=== PATIENT | female | born 1950 | race Caucasian/White ===

== ENCOUNTER → 2019-03-28 | Outpatient (CLI) | payer MEDICARE, OTHER ==
[2019-03-28 11:46] LABS: Basophils % (A) 1 %; Eosinophils # (A) 0.1 k/uL (0-0.7); Eosinophils % (A) 1 %; HCT 35.5 % (34.0-46.0); HGB 12.1 gm/dL (11.4-16.0); Lymphocytes # (A) 1.1 k/uL (1.0-4.8); Lymphocytes % (A) 15 %; MCH 30.3 pg (25.0-35.0); MCHC 34.1 g/dL (31.0-37.0); MCV 88.6 fL (80.0-100.0); Monocytes # (A) 0.5 k/uL (0-1.0); Monocytes % (A) 7 %; Neutrophils # (A) 5.5 k/uL (1.3-7.7); Neutrophils % (A) 75 %; Platelet Count 397 k/uL (150-450); RDW 12.7 % (11.5-15.5); WBC 7.3 k/uL (3.8-10.6)
[2019-03-28 11:56] LABS: INR 0.8 (<1.2); Partial Thromboplastin Time 22.8 sec (22.0-30.0); Prothrombin Time 9.3 sec (9.0-12.0)
[2019-03-28 11:58] LABS: African American GFR (CKD) >90 (>60 ml/min/1.73 sqM); Anion Gap 11 mmol/L; Blood Urea Nitrogen 11 mg/dL (7-17); Carbon Dioxide 27 mmol/L (22-30); Chloride 104 mmol/L (98-107); Glucose 200 mg/dL (74-99); Non-African American GFR(CKD) >90 (>60 ml/min/1.73 sqM); Potassium 3.8 mmol/L (3.5-5.1); Sodium 142 mmol/L (137-145)
[2019-03-28 12:07] LABS: Appearance,Urine Clear (Clear); Bacteria,Urine Rare /hpf; Bilirubin,Urine Negative (Negative); Blood,Urine Trace (Negative); Color,Urine Colorless; Glucose,Urine (UA) Negative (Negative); Ketones,Urine Negative (Negative); Leukocyte Esterase,Urine Negative (Negative); Nitrite,Urine Negative (Negative); PH, Urine 6.5 (5.0-8.0); Protein,Urine Trace (Negative); RBC,Urine 1 /hpf (0-5); Specific Gravity,Urine 1.002 (1.001-1.035); Urobilinogen,Urine <2.0 mg/dL (<2.0); WBC,Urine <1 /hpf (0-5)
== END | disposition home or self-care (01) ==
LOC: LABPAT 10:24
PROVIDERS: ATTEND Thoracic Surgery (Cardiothoracic Vascular Surgery)
DX: Z01.818 Encounter for other preprocedural examination (principal); Z01.812 Encounter for preprocedural laboratory examination; C34.12 Malignant neoplasm of upper lobe, left bronchus or lung; E86.0 Dehydration; Z79.01 Long term (current) use of anticoagulants
CPT/HCPCS: 36415; 80051; 81001; 82565; 82947; 84520; 85025; 85610; 85730; 86850; 86900; 86901; 93005

== ENCOUNTER 2019-04-07 06:13 | Inpatient (IN) | payer MEDICARE, OTHER ==
[~2019-04-07 06:13] MED LIST: DEXAMETHASONE SOD PHOSPHATE 10 MG/ML 1 ML VIAL IV ONE; MIDAZOLAM 2 MG/2 ML VIAL IV PRN; ONDANSETRON 4 MG/2 ML VIAL IVP ONE
[2019-04-07] MEDS ORDERED: LIDOCAINE 1% 20 ML VIAL (10MG/ML) FOR IV START INTRADERMA ONE (06:59)
[2019-04-07] MEDS: LACTATED RINGERS 1,000 ML IV SCH ×2 (07:00→07:01)
[2019-04-07 07:04] LABS: Glucose,Whole Blood 153 mg/dL (75-99)
[2019-04-07] MEDS ORDERED: SUCCINYLCHOLINE CHLORIDE 100 MG/5 ML SYR IV ONE (08:09)
[2019-04-07] MEDS ORDERED: ROCURONIUM BROMIDE 10 MG/ML 10 ML VIAL IV ONE (08:09)
[2019-04-07] MEDS ORDERED: GLYCOPYRROLATE 0.2 MG/ML 2 ML VIAL ONE (08:09)
[2019-04-07] MEDS ORDERED: PROPOFOL 10 MG/ML 20 ML VIAL IV ONE (08:09)
[2019-04-07] MEDS ORDERED: NEOSTIGMINE 1 MG/ML 10 ML VIAL ONE (08:09)
[2019-04-07] MEDS ORDERED: HYDROmorphone (PF) 1 MG/ML ONE (08:09)
[2019-04-07] MEDS ORDERED: MIDAZOLAM 2 MG/2 ML VIAL ONE (08:09)
[2019-04-07] MEDS ORDERED: LIDOCAINE 1% INJ 10MG/ML (20 ML MDV) ONE (08:09)
[2019-04-07] MEDS ORDERED: LABETALOL 5 MG/ML VIAL MDV ONE (08:09)
[2019-04-07] MEDS ORDERED: ESMOLOL 100 MG/10 ML VIAL ONE (08:09)
[2019-04-07] MEDS ORDERED: METOPROLOL TARTRATE 5 MG/5 ML VIAL IVP ONE (08:09)
[2019-04-07] MEDS ORDERED: fentaNYL (PF) 50 MCG/ML 2 ML AMP ONE (08:09)
[2019-04-07] MEDS ORDERED: BUPIVACAINE (PF) 0.5% 30 ML VIAL SQ ONE ×3 (08:58→09:26)
[2019-04-07] MEDS ORDERED: LACTATED RINGERS 1,000 ML IV ONE (11:31)
--- NOTE | 2019-04-07 11:53 | P.OP ---
Date of Procedure: 04/07/19 Preoperative Diagnosis: Primary carcinoma left upper lobe lung Postoperative Diagnosis: Same Procedure(s) Performed: Robotic-assisted thoracoscopic left upper lobectomy with mediastinal lymph node dissection Anesthesia: ELIDA Surgeon: Ronny Elias Staff Submarine Warfare Officer #1: Julio Carranza Estimated Blood Loss (ml): 40 IV fluids (ml): 1,000 Urine output (ml): 250 Pathology: other (Left upper lobe, lymph node stations L5, L6, level VII, L8, L 10, L 11) Condition: stable Disposition: PACU Indications for Procedure: 68-year-old female with clinical stage I carcinoma left upper lobe lung proven on needle biopsy. Operative Findings: Small tumor and left upper lobe with overlying pleural retraction. Pulmonary parenchyma was very poorly compliant and we never achieved complete intact elective cysts during the entire case. There was extensive hilar and mediastinal anthracotic adenopathy. Description of Procedure: The patient was brought to the operating room, placed supine on the operating table, anesthetized and intubated with a double-lumen endotracheal tube. The tube was positioned with fiberoptic bronchoscopy and secured. No endobronchial lesions were noted. The patient was turned in the right lateral decubitus position and appropriately positioned for robotic lobectomy. The left chest was sterilely prepped and draped. 3 incisions were made in the eighth interspace starting with one in the anterior axillary line and one in the posterior axillary line and one anterior to the initial incision a fourth small incision was made in the fourth interspace posteriorly. Through each of these robotic ports were placed. A working port was placed at the level of the diaphragm between the 2 anteriormost port. Single lung ventilation was utilized prior to port placement and maintained throughout the operation. The patient tolerated this well. CO2 insufflation was used to try to deflate the lung. Lung insufflation was poor.'s fissures were incomplete. There were adhesions present in the pleural cavity and these were taken down with electrocautery. The inferior pulmonary ligament was mobilized and dissection carried posteriorly. Lymph nodes in stations L 10 level VII L8 and L6 were harvested. Dissection was carried up on the mainstem bronchus posteriorly as well as on the pulmonary artery and the pleural reflection was taken down as far superiorly as possible. Once we completed the posterior dissection we turned our attention to the anterior surface. Further adhesions were taken down. Dissection was carried up over the superior pulmonary vein and superior pulmonary vein was encircled. It was ligated and divided with a robotic stapler. Further dissection in the hilum removed some L 11 lymph nodes. We were now able to encircle the left upper lobe bronchus and ligated and divided with a robotic thick stapler. We were now able to encircle first the lingular artery and then the truncus anterior doses and each of these were individually ligated and stapled with robotic staplers. One final branch of the pulmonary artery was present and pleural reflection with dissection was completed and this branch was taken with a final firing of a robotic stapler. The fissures were then completed with robotic medium thick staplers. Specimen was placed in an Endo Catch bag. The robot was undocked and the working port incision was enlarged. The specimen was brought through the resulting incision through the in the Endo Catch bag and sent for permanent section. The chest was irrigated with warm water. There was no air leak from the staple lines or from the hilar region. There were some small tears in the lower lobe which were very superficial which should develop due to the persistent inflation of the lung. These were left alone. A 28-Spanish chest tube was placed through separate stab incision and positioned posterior apically. The lung was inflated under thoracoscopic visualization and noted to inflate well. Scope was removed. Chest tube was secured with an 0 Ethibond stitch. Surgical incisions were closed with layers of Vicryl suture. Rib blocks were performed posteriorly at the level of the incisions with half percent Marcaine. Patient was turned supine and extubated and transferred to recovery in stable condition.
[2019-04-07] MEDS: HYDROmorphone 0.5 MG/0.5 ML SYRINGE IVP PRN ×3 (12:11→12:53)
[2019-04-07] MEDS ORDERED: ONDANSETRON 4 MG/2 ML VIAL IVP ONE (12:15)
[2019-04-07] MEDS ORDERED: diphenhydrAMINE 50 MG/ML 1 ML VIAL IVP ONE (12:25)
[2019-04-07] MEDS ORDERED: ONDANSETRON 4 MG/2 ML VIAL IVP PRN (12:42)
[2019-04-07] MEDS ORDERED: IPRATROPIUM-ALBUTEROL 3 ML NEB IH PRN (12:42)
[2019-04-07] MEDS ORDERED: ACETAMINOPHEN TAB 500 MG TAB PO PRN (12:42)
[2019-04-07] MEDS ORDERED: traMADol 50 MG TAB PO PRN (12:42)
[2019-04-07] MEDS ORDERED: SODIUM CHLORIDE 0.9% 1,000 ML IV SCH (12:42)
[2019-04-07] MEDS: KETOROLAC 30 MG/ML 1 ML VIAL IVP SCH ×3 (12:55→23:24)
[2019-04-07 12:59] LABS: Glucose,Whole Blood 217 mg/dL (75-99)
[2019-04-07] MEDS ORDERED: INSULIN ASPART (NovoLOG) 100 UNIT/ML VIAL SQ ONE (13:03)
--- NOTE | 2019-04-07 13:19 | XR ---
EXAMINATION TYPE: XR chest 1V portable DATE OF EXAM: 04/07/2019 COMPARISON: 04/07/2019 HISTORY: Post lobectomy TECHNIQUE: Single frontal view of the chest is obtained. FINDINGS: There is a left-sided chest tube. No sizable pneumothorax. Coarsened interstitium noted. T here is volume loss on the left. Atherosclerotic change aorta. IMPRESSION: 1. Postsurgical change with no sizable pneumothorax. Volume loss on the left is compatible with the jess anna's reported history of lobectomy. 2. Coarsened interstitium can be seen with chronic interstitial lung disease, interstitial pneumoniti s or venous congestion correlate clinically.
[2019-04-07 14:13] LABS: ABG Base Excess 2.3 mmol/L; ABG HCO3 29 mmol/L (21-25); ABG Oxygen Saturation 94.9 % (94-97); ABG PCO2 63 mmHg (35-45); ABG PH 7.28 (7.35-7.45); ABG PO2 81 mmHg (83-108); ABG TCO2 31 mmol/L (19-24); Allen Test Performed? Yes
[2019-04-07 14:24] LABS: Glucose,Whole Blood 167 mg/dL (75-99)
[2019-04-07] MEDS: HEPARIN SODIUM,PORCINE 5,000 UNIT/ML 1 ML VIAL SQ SCH ×2 (16:48→23:23)
[2019-04-07] MEDS: metFORMIN 500 MG TAB PO SCH (16:57)
[2019-04-07 17:02] LABS: Glucose,Whole Blood 136 mg/dL (75-99)
[2019-04-07] MEDS: IPRATROPIUM-ALBUTEROL 3 ML NEB IH SCH (19:09)
[2019-04-07 20:17] LABS: Glucose,Whole Blood 242 mg/dL (75-99)
--- NOTE | 2019-04-07 20:47 | CONS ---
CONSULTATION Mony Khan is a 68-year-old female who presented to [facility] for elective surgery. She had a known history of a lung nodule in the left upper lobe that was positive on PET scan. Subsequently CT-guided needle biopsy confirmed non-small- cell cancer. She underwent left upper lobectomy with mediastinal lymph node dissection and is in the postoperative stage. She is awake and alert. She does not have much pain and complains of mild shortness of breath. PAST MEDICAL HISTORY: Her past medical history is positive for: 1. Diabetes mellitus, type 2. 2. Hypertension. 3. Hypercholesteremia. 4. COPD. PAST SURGICAL HISTORY: Her past surgical history is positive for tubal ligation. FAMILY HISTORY: Positive for coronary artery disease in her father, cancer in her mother. SOCIAL HISTORY: The patient smoked for over 50 years. She quit in December of 2018. She does not drink alcohol excessively. MEDICATIONS: Her medications prior to admission were: 1. Norvasc. 2. Glucophage. 3. Glucotrol. 4. Prilosec. 5. Lisinopril. 6. Lipitor. 7. Low-dose aspirin. REVIEW OF SYSTEMS: Noncontributory. PHYSICAL EXAMINATION: Respiratory rate of 16, pulse rate of 80. She is afebrile. Blood pressure is 152/72. Oxygen saturation on 2 L by nasal cannula is 93%. HEENT is unremarkable. Chest reveals decreased breath sounds on the left with chest tube in place with an air leak. Right side is relatively clear. Cardiovascular system is in S1, S2. Abdomen is soft. There is no pedal edema. IMPRESSION AT THIS TIME: 1. Status post left upper lobectomy with wgy-soize-[id number] cancer of the lung. 2. Mild chronic obstructive pulmonary disease. At this point in time from a pulmonary standpoint, recommend incentive spirometry. Continue chest tube per Thoracic Surgery. GI and DVT prophylaxis. Bronchodilators. Prognosis is fair. Will have Medical Oncology further evaluate the patient. Depending on how she does, we shall make further changes to her care. I would like to thank you for allowing me the privilege of participating in her care. MMODL / IJN: [id number] /
[2019-04-07] MEDS: ATORVASTATIN 20 MG TAB PO SCH (20:52)
[2019-04-07] MEDS: METOPROLOL TARTRATE 12.5 MG TAB PO SCH (20:52)
[2019-04-07] MEDS: INSULIN ASPART (NovoLOG) 100 UNIT/ML VIAL SQ SCH ×2 (21:56→22:14)
[2019-04-07 22:01] LABS: Glucose,Whole Blood 263 mg/dL (75-99)
[2019-04-08 05:44] LABS: Glucose,Whole Blood 191 mg/dL (75-99)
[2019-04-08] MEDS: KETOROLAC 30 MG/ML 1 ML VIAL IVP SCH ×4 (06:29→23:42)
[2019-04-08] MEDS: PANTOPRAZOLE 40 MG TABLET PO SCH (06:30)
[2019-04-08] MEDS: INSULIN ASPART (NovoLOG) 100 UNIT/ML VIAL SQ SCH ×4 (06:30→21:42)
[2019-04-08 06:50] LABS: Basophils % (A) 0 %; Eosinophils % (A) 0 %; HCT 34.5 % (34.0-46.0); HGB 11.3 gm/dL (11.4-16.0); Lymphocytes # (A) 0.8 k/uL (1.0-4.8); Lymphocytes % (A) 8 %; MCH 29.6 pg (25.0-35.0); MCHC 32.7 g/dL (31.0-37.0); MCV 90.4 fL (80.0-100.0); Mean Platelet Volume 7.1; Monocytes # (A) 0.9 k/uL (0-1.0); Monocytes % (A) 8 %; Neutrophils # (A) 8.8 k/uL (1.3-7.7); Neutrophils % (A) 82 %; Platelet Count 402 k/uL (150-450); RBC 3.81 m/uL (3.80-5.40); RDW 12.6 % (11.5-15.5); WBC 10.8 k/uL (3.8-10.6)
--- NOTE | 2019-04-08 06:57 | PN ---
PROGRESS NOTE She was seen on 04/08/2019. She has been hemodynamically stable. She does not complain of shortness of breath. The pain is under control. PHYSICAL EXAMINATION: Her vitals are stable. She is afebrile. She has a left-sided chest tube with some decreased breath sounds, but there is no air leak this morning. Her right side is relatively clear. Cardiovascular system reveals and S1, S2. Abdomen is soft. There is no edema. MEDICATIONS: Medications were reviewed. IMPRESSION AT THIS TIME: 1. Left upper lobe non-small cell cancer of the lung, status post left upper lobectomy with lymph node dissection. 2. Left chest tube in the perioperative state. 3. Mild chronic obstructive pulmonary disease. Continue bronchodilators, incentive spirometry, GI and DVT prophylaxis. The patient's prognosis is fair. MMODL / IJN: [id number] /
[2019-04-08 06:58] LABS: African American GFR (CKD) >90 (>60 ml/min/1.73 sqM); Anion Gap 9 mmol/L; Blood Urea Nitrogen 9 mg/dL (7-17); Calcium 8.4 mg/dL (8.4-10.2); Carbon Dioxide 25 mmol/L (22-30); Chloride 101 mmol/L (98-107); Glucose 182 mg/dL (74-99); Non-African American GFR(CKD) >90 (>60 ml/min/1.73 sqM); Potassium 4.2 mmol/L (3.5-5.1); Sodium 135 mmol/L (137-145)
[2019-04-08] MEDS: IPRATROPIUM-ALBUTEROL 3 ML NEB IH SCH ×4 (07:26→19:46)
--- NOTE | 2019-04-08 07:45 | P.PN ---
Subjective Progress Note Date: 04/08/19 Principal diagnosis: Primary carcinoma left upper lobe of the lung. Previous medical history of COPD, recent smoking cessation, hypertension, hyperlipidemia, type 2 diabetes, hiatal hernia, family history of heart disease and cancer. POD #1 robotic assisted thoracoscopic left upper lobectomy with mediastinal lymph node dissection. The patient is currently sitting up in bed on the cardiac stepdown unit in no acute distress eating breakfast. Denies pain or shortness of breath at this time. Left pleural chest tube remains to continuous wall suction with small intermittent air leak. No new concerns. Objective - Vital Signs Vital signs: Vital Signs Temp 98 F 04/07/19 20:00 Pulse 95 04/08/19 07:26 Resp 18 04/08/19 04:00 BP 154/70 04/08/19 04:00 Pulse Ox 98 04/08/19 04:00 Intake & Output 04/07/19 04/08/19 04/08/19 18:59 06:59 18:59 Intake Total 2270 Output Total 440 1120 Balance 1830 -1120 Weight 50.3 kg Intake: IV 2150 Oral 120 Output: Chest Tube Drainage 220 Chest Tube Left 220 Urine 400 900 Estimated Blood Loss 40 Other: Voiding Method Indwelling Catheter Indwelling Catheter - Constitutional General appearance: Present: cooperative, no acute distress - Respiratory Details: Lungs sounds diminished bilaterally. Respirations even, nonlabored. Currently on 2 L nasal cannula with oxygen saturation 93%. Only able to achieve 500 mL on her incentive spirometry. Weak cough. Left pleural chest tube to continuous wall suction, 180 mL serosanguineous drainage overnight, 450 mL since surgery, small intermittent air leak present. - Cardiovascular Details: S1, S2 present. Regular rate and rhythm, sinus rhythm on telemetry. Palpable peripheral pulses bilaterally. No edema present. No calf pain or tenderness noted. SCDs present. - Gastrointestinal Gastrointestinal Comment(s): abdomen soft, nontender, nondistended. Active bowel sounds 4 quadrants. Tolerating diet. Positive flatus. - Genitourinary Genitourinary Comment(s): Lugo present draining clear, yellow urine. Output 150-550 mL every 4 hours - Integumentary Integumentary Comment(s): Skin is warm and dry with evidence of good perfusion. Left lateral chest tube site covered with dry intact dressing. - Neurologic Neurologic: Present: CNII-XII intact - Musculoskeletal Musculoskeletal: Present: strength equal bilaterally - Psychiatric Psychiatric: Present: A&O x's 3, appropriate affect, intact judgment & insight - Allied health notes Allied health notes reviewed: nursing - Labs CBC & Chem 7: 04/08/19 05:57 04/08/19 05:57 Labs: Abnormal Lab Results - Last 24 Hours (Table) 04/07/19 04/07/19 04/07/19 Range/Units 12:57 14:10 14:23 WBC (3.8-10.6) k/uL Hgb (11.4-16.0) gm/dL Neutrophils # (1.3-7.7) k/uL Lymphocytes # (1.0-4.8) k/uL ABG pH 7.28 L (7.35-7.45) ABG pCO2 63 H (35-45) mmHg ABG pO2 81 L (83-108) mmHg ABG HCO3 29 H (21-25) mmol/L ABG Total CO2 31 H (19-24) mmol/L Sodium (137-145) mmol/L Creatinine (0.52-1.04) mg/dL Glucose (74-99) mg/dL POC Glucose (mg/dL) 217 H 167 H (75-99) mg/dL 04/07/19 04/07/19 04/07/19 Range/Units 16:55 20:15 22:00 WBC (3.8-10.6) k/uL Hgb (11.4-16.0) gm/dL Neutrophils # (1.3-7.7) k/uL Lymphocytes # (1.0-4.8) k/uL ABG pH (7.35-7.45) ABG pCO2 (35-45) mmHg ABG pO2 (83-108) mmHg ABG HCO3 (21-25) mmol/L ABG Total CO2 (19-24) mmol/L Sodium (137-145) mmol/L Creatinine (0.52-1.04) mg/dL Glucose (74-99) mg/dL POC Glucose (mg/dL) 136 H 242 H 263 H (75-99) mg/dL 04/08/19 04/08/19 04/08/19 Range/Units 05:43 05:57 05:57 WBC 10.8 H (3.8-10.6) k/uL Hgb 11.3 L (11.4-16.0) gm/dL Neutrophils # 8.8 H (1.3-7.7) k/uL Lymphocytes # 0.8 L (1.0-4.8) k/uL ABG pH (7.35-7.45) ABG pCO2 (35-45) mmHg ABG pO2 (83-108) mmHg ABG HCO3 (21-25) mmol/L ABG Total CO2 (19-24) mmol/L Sodium 135 L (137-145) mmol/L Creatinine 0.51 L (0.52-1.04) mg/dL Glucose 182 H (74-99) mg/dL POC Glucose (mg/dL) 191 H (75-99) mg/dL - Imaging and Cardiology Chest x-ray: image reviewed Assessment and Plan Assessment: 1. 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 COPD 3. Recent smoking cessation 4. Hypertension 5. Hyperlipidemia 6. Type 2 diabetes 7. Hiatal hernia 8. Family history of heart disease and cancer Plan: 1. Left pleural chest tube placed to water seal. Will monitor for resolution of air leak. Surgical pathology pending 2. Wean O2 as tolerated. Encourage incentive spirometry use 10 times every hour while awake. Bronchodilators per pulmonology 3. Will monitor daily x-rays 4. Continue home medication regimen. Lopressor added secondary to tachycardia, hypertension during surgery 5. Oncology consulted per Dr. Whitfield. Appreciate recommendations. 6. GI/DVT prophylaxis 7. Pain control is current medication regimen 8. More recommendations to follow based on patient's progress Time with Patient: Greater than 30
[2019-04-08] MEDS: LISINOPRIL 20 MG TAB PO SCH (07:50)
[2019-04-08] MEDS: HEPARIN SODIUM,PORCINE 5,000 UNIT/ML 1 ML VIAL SQ SCH ×3 (07:50→23:42)
[2019-04-08] MEDS: ASPIRIN 81 MG PO SCH (07:51)
[2019-04-08] MEDS: amLODIPine 10 MG TAB PO SCH (07:51)
[2019-04-08] MEDS: METOPROLOL TARTRATE 12.5 MG TAB PO SCH ×2 (07:51→20:07)
--- NOTE | 2019-04-08 09:05 | XR ---
EXAMINATION TYPE: XR chest 1V DATE OF EXAM: 04/08/2019 COMPARISON: 04/07/2019 INDICATION: Post lobectomy TECHNIQUE: Single frontal view of the chest is obtained. FINDINGS: The heart size is upper limits of normal. The pulmonary vasculature is normal. There is diminished aeration along the left lung compatible with the patient's recent lobectomy. Some very minimal infiltrate may be along the left heart border likely on the basis of atelectasis. Left- sided chest tube is present. No pneumothorax appreciated. Right lung appears clear. IMPRESSION: 1. Suggestion of minimal atelectasis within the residual left lung. 2. Patient status post left lobectomy. 3. Left-sided chest tube present, no pneumothorax is evident.
[2019-04-08 11:45] LABS: Glucose,Whole Blood 174 mg/dL (75-99)
[2019-04-08 16:09] LABS: Glucose,Whole Blood 147 mg/dL (75-99)
[2019-04-08] MEDS: metFORMIN 500 MG TAB PO SCH (16:14)
[2019-04-08 17:21] LABS: Glucose,Whole Blood 197 mg/dL (75-99)
--- NOTE | 2019-04-08 18:00 | P.CONS ---
History of Present Illness - Reason for Consult Consult date: 04/08/19 Clinical Stage I NSCLC Requesting physician: Alek Whitfield - Chief Complaint Admit for elective surgery - History of Present Illness Mrs. Khan is a very pleasant 68-year-old female patient who is admitted for robotic left upper lobectomy for biopsy-proven non-small cell lung cancer. In September 2018 pt was having, what I suspect, routine f/u imaging (she states she had a a "haziness" in the RENY in Mar 2018 being followed). This was found to be a left upper lobe nodule now, PET scan that showed activity only in that nodule. She had biopsy on 03/02, path + NSCLC. She had curative surgery on 04/07/[address] Elias who performed robotic surgery on her with multiple lymph node stations sampled per guidelines. Those results are pending. Patient states that her symptoms included fatigue and weight loss. Postoperatively she is doing well, her pain is controlled, she is using incentive spirometry, she has no other complaints on a 14 point review of systems. Review of Systems 14 point review of systems is negative except as stated in HPI Past Medical History Past Medical History: No Reported History, Cancer, COPD, Diabetes Mellitus, GERD/Reflux, Hyperlipidemia, Hypertension, Skin Disorder Additional Past Medical History / Comment(s): lung cancer, hernia, psoriasis, History of Any Multi-Drug Resistant Organisms: None Reported Additional Past Surgical History / Comment(s): surgery for a tubal Past Anesthesia/Blood Transfusion Reactions: No Reported Reaction Smoking Status: Former smoker - Past Family History Mother Family Medical History: Cancer Sister(s) Family Medical History: Cancer Brother(s) Family Medical History: Cancer Medications and Allergies Home Medications Medication Instructions Recorded Confirmed Type Aspirin [Adult Low Dose Aspirin EC] 81 mg PO DAILY 01/24/19 04/04/19 History Atorvastatin [Lipitor] 20 mg PO HS 01/24/19 04/04/19 History Lisinopril 40 mg PO DAILY 04/04/19 04/04/19 History Omeprazole [PriLOSEC] 40 mg PO QAM 04/04/19 04/04/19 History glipiZIDE [Glucotrol XL] 2.5 mg PO DAILY 04/04/19 04/04/19 History metFORMIN HCL [Glucophage] 2,000 mg PO W/SUPPER 04/04/19 04/04/19 History amLODIPine [Norvasc] 10 mg PO DAILY 04/07/19 04/07/19 History Allergies Allergy/AdvReac Type Severity Reaction Status Date / Time No Known Allergies Allergy Verified 04/07/19 06:52 Physical Exam Vitals: Vital Signs Temp Pulse Pulse Resp BP Pulse Ox 04/08/19 16:15 92 16 04/08/19 16:04 97 16 04/08/19 16:00 98 F 101 H 16 134/63 92 L 04/08/19 11:24 92 04/08/19 11:12 90 04/08/19 11:02 98.1 F 93 18 187/85 92 L 04/08/19 10:54 18 04/08/19 08:00 18 04/08/19 07:49 98.2 F 95 18 157/70 95 04/08/19 07:37 95 04/08/19 07:26 95 04/08/19 04:00 94 18 154/70 98 04/07/19 23:51 95 20 149/70 93 L 04/07/19 20:00 98 F 99 18 176/83 96 04/07/19 19:27 96 04/07/19 19:10 94 Intake and Output 04/08/19 04/08/19 04/08/19 06:59 14:59 22:59 Output Total 1080 0 Balance -1080 0 Output: Chest Tube Drainage 180 0 Chest Tube Left 180 0 Urine 900 Other: Voiding Method Indwelling Catheter Indwelling Catheter Indwelling Catheter Weight 50.3 kg - Constitutional General appearance: average body habitus, cooperative, no acute distress - EENT Eyes: anicteric sclerae, EOMI, poor dentition ENT: hearing grossly normal, normal oropharynx - Neck Neck: no lymphadenopathy - Respiratory Respiratory: bilateral: diminished - Cardiovascular Rhythm: regular Heart sounds: normal: S1, S2 Abnormal Heart Sounds: no systolic murmur, no diastolic murmur, no rub, no S3 Gallop, no S4 Gallop, no click, no other leg Peripheral Edema: bilateral: None - Gastrointestinal General gastrointestinal: no absent bowel sounds, no decreased bowel sounds, no distended, no hepatomegaly, no hyperactive bowel sounds, normal bowel sounds, no organomegaly, no rigid, no scaphoid, soft, no splenomegaly, no tenderness, no umbilical hernia, no ventral hernia - Integumentary Integumentary: normal - Neurologic Neurologic: CNII-XII intact - Musculoskeletal Musculoskeletal: strength equal bilaterally - Psychiatric Psychiatric: A&O x's 3, appropriate affect, intact judgment & insight Results CBC & Chem 7: 04/08/19 05:57 04/08/19 05:57 Labs: Abnormal Lab Results - Last 24 Hours (Table) 04/07/19 04/07/19 04/08/19 Range/Units 20:15 22:00 05:43 WBC (3.8-10.6) k/uL Hgb (11.4-16.0) gm/dL Neutrophils # (1.3-7.7) k/uL Lymphocytes # (1.0-4.8) k/uL Sodium (137-145) mmol/L Creatinine (0.52-1.04) mg/dL Glucose (74-99) mg/dL POC Glucose (mg/dL) 242 H 263 H 191 H (75-99) mg/dL 04/08/19 04/08/19 04/08/19 Range/Units 05:57 05:57 11:38 WBC 10.8 H (3.8-10.6) k/uL Hgb 11.3 L (11.4-16.0) gm/dL Neutrophils # 8.8 H (1.3-7.7) k/uL Lymphocytes # 0.8 L (1.0-4.8) k/uL Sodium 135 L (137-145) mmol/L Creatinine 0.51 L (0.52-1.04) mg/dL Glucose 182 H (74-99) mg/dL POC Glucose (mg/dL) 174 H (75-99) mg/dL 04/08/19 04/08/19 Range/Units 16:08 16:54 WBC (3.8-10.6) k/uL Hgb (11.4-16.0) gm/dL Neutrophils # (1.3-7.7) k/uL Lymphocytes # (1.0-4.8) k/uL Sodium (137-145) mmol/L Creatinine (0.52-1.04) mg/dL Glucose (74-99) mg/dL POC Glucose (mg/dL) 147 H 197 H (75-99) mg/dL Chest x-ray: report reviewed CT scan - chest: report reviewed Assessment and Plan (1) Stage I adenocarcinoma of lung Narrative/Plan: Pending review of final pathology and all of the lymph node stations for final stage. Discussed with patient that following with a Medical Oncologist is recommended for monitoring, exams and imaging per guidelines. She and her family verbalized understanding recommendations. Will plan on seeing pt in the about 4-6 weeks Current Visit: Yes Status: Acute Priority: Medium Code(s): C34.90 - MALIGNANT NEOPLASM OF UNSP PART OF UNSP BRONCHUS OR LUNG SNOMED Code(s): 867029288
[2019-04-08] MEDS: ATORVASTATIN 20 MG TAB PO SCH (20:07)
[2019-04-08 20:52] LABS: Glucose,Whole Blood 143 mg/dL (75-99)
[2019-04-09 05:19] LABS: HCT 32.9 % (34.0-46.0); HGB 10.9 gm/dL (11.4-16.0); MCH 30.1 pg (25.0-35.0); MCHC 33.2 g/dL (31.0-37.0); MCV 90.6 fL (80.0-100.0); Platelet Count 423 k/uL (150-450); RBC 3.63 m/uL (3.80-5.40); RDW 12.6 % (11.5-15.5); WBC 9.5 k/uL (3.8-10.6)
[2019-04-09 05:39] LABS: African American GFR (CKD) >90 (>60 ml/min/1.73 sqM); Anion Gap 8 mmol/L; Blood Urea Nitrogen 11 mg/dL (7-17); Calcium 8.7 mg/dL (8.4-10.2); Carbon Dioxide 26 mmol/L (22-30); Chloride 105 mmol/L (98-107); Glucose 165 mg/dL (74-99); Non-African American GFR(CKD) >90 (>60 ml/min/1.73 sqM); Sodium 139 mmol/L (137-145)
[2019-04-09 06:34] LABS: Glucose,Whole Blood 179 mg/dL (75-99)
--- NOTE | 2019-04-09 06:39 | XR ---
EXAMINATION TYPE: XR chest 1V portable DATE OF EXAM: 04/09/2019 HISTORY: post lobectomy. REFERENCE: Previous study dated 04/08/2019. FINDINGS: There is a left pleural drain in place. There is continuing left-sided pneumothorax which i s approximately 30-40% by volume. There is some atelectasis at the right lung base. There is airspace disease at the left lung base. The heart is not enlarged. There is vascular congestion and subtle in terstitial change. IMPRESSION: 1. CONTINUING LEFT-SIDED PNEUMOTHORAX. 2. BIBASILAR AIRSPACE DISEASE. 3. FINDINGS MOST CONSISTENT WITH MILD HEART FAILURE.
[2019-04-09] MEDS: KETOROLAC 30 MG/ML 1 ML VIAL IVP SCH ×4 (06:46→23:19)
[2019-04-09] MEDS: PANTOPRAZOLE 40 MG TABLET PO SCH (06:47)
[2019-04-09] MEDS: INSULIN ASPART (NovoLOG) 100 UNIT/ML VIAL SQ SCH ×4 (06:47→21:55)
[2019-04-09] MEDS: METOPROLOL TARTRATE 25 MG TAB PO SCH ×2 (07:50→20:34)
[2019-04-09] MEDS: LISINOPRIL 20 MG TAB PO SCH (07:50)
[2019-04-09] MEDS: HEPARIN SODIUM,PORCINE 5,000 UNIT/ML 1 ML VIAL SQ SCH ×3 (07:50→23:20)
[2019-04-09] MEDS: ASPIRIN 81 MG PO SCH (07:50)
[2019-04-09] MEDS: amLODIPine 10 MG TAB PO SCH (07:51)
--- NOTE | 2019-04-09 08:19 | P.PN ---
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 Previous medical history of COPD, recent smoking cessation, hypertension, hyperlipidemia, type 2 diabetes, hiatal hernia, family history of heart disease and cancer. POD #2 robotic assisted thoracoscopic left upper lobectomy with mediastinal lymph node dissection. The patient is currently sitting up in bed on the cardiac stepdown unit in no acute distress eating breakfast. Denies pain or shortness of breath at this time. Left pleural chest tube placed to waterseal yesterday with small intermittent air leak present. No new concerns. Objective - Vital Signs Vital signs: Vital Signs Temp 98.4 F 04/09/19 07:48 Pulse 101 H 04/09/19 07:48 Resp 16 04/09/19 07:48 BP 152/76 04/09/19 07:48 Pulse Ox 96 04/09/19 07:48 Intake & Output 04/08/19 04/09/19 04/09/19 18:59 06:59 18:59 Output Total 0 150 Balance 0 -150 Weight 50.9 kg Output: Chest Tube Drainage 0 150 Chest Tube Left 0 150 Other: Voiding Method Indwelling Catheter Indwelling Catheter - Constitutional General appearance: Present: cooperative, no acute distress - Respiratory Details: Lungs sounds diminished bilaterally. Respirations even, nonlabored. Currently on 3 L nasal cannula with oxygen saturation 93%. Only able to achieve 500 mL on her incentive spirometry. Weak cough. Left pleural chest tube to waterseal, 40 mL serosanguineous drainage overnight, 200 mL since surgery, small intermittent air leak present, tidaling present. - Cardiovascular Details: S1, S2 present. Regular rate and rhythm, sinus rhythm on telemetry. Palpable peripheral pulses bilaterally. No edema present. No calf pain or tenderness noted. SCDs present. - Gastrointestinal Gastrointestinal Comment(s): abdomen soft, nontender, nondistended. Active bowel sounds 4 quadrants. Tolerating diet. Positive bowel movement this morning per patient - Genitourinary Genitourinary Comment(s): Lugo was discontinued yesterday. Patient states she has been up to the bathroom to void - Integumentary Integumentary Comment(s): Skin is warm and dry with evidence of good perfusion. Left lateral chest tube site covered with dry intact dressing. - Neurologic Neurologic: Present: CNII-XII intact - Musculoskeletal Musculoskeletal: Present: gait normal, strength equal bilaterally - Psychiatric Psychiatric: Present: A&O x's 3, appropriate affect, intact judgment & insight - Allied health notes Allied health notes reviewed: nursing - Labs CBC & Chem 7: 04/09/19 04:46 04/09/19 04:46 Labs: Abnormal Lab Results - Last 24 Hours (Table) 04/08/19 04/08/19 04/08/19 Range/Units 11:38 16:08 16:54 RBC (3.80-5.40) m/uL Hgb (11.4-16.0) gm/dL Hct (34.0-46.0) % Glucose (74-99) mg/dL POC Glucose (mg/dL) 174 H 147 H 197 H (75-99) mg/dL 04/08/19 04/09/19 04/09/19 Range/Units 20:50 04:46 04:46 RBC 3.63 L (3.80-5.40) m/uL Hgb 10.9 L (11.4-16.0) gm/dL Hct 32.9 L (34.0-46.0) % Glucose 165 H (74-99) mg/dL POC Glucose (mg/dL) 143 H (75-99) mg/dL 04/09/19 Range/Units 06:33 RBC (3.80-5.40) m/uL Hgb (11.4-16.0) gm/dL Hct (34.0-46.0) % Glucose (74-99) mg/dL POC Glucose (mg/dL) 179 H (75-99) mg/dL - Imaging and Cardiology Chest x-ray: report reviewed, image reviewed Assessment and Plan Assessment: 1. 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 COPD 3. Recent smoking cessation 4. Hypertension 5. Hyperlipidemia 6. Type 2 diabetes 7. Hiatal hernia 8. Family history of heart disease and cancer Plan: 1. Continue left pleural chest tube to water seal. Will monitor for resolution of air leak. Surgical pathology pending 2. Wean O2 as tolerated. Encourage incentive spirometry use 10 times every hour while awake. Bronchodilators per pulmonology 3. Will monitor daily x-rays 4. Continue home medication regimen. Lopressor increased 5. Oncology consulted per Dr. Whitfield. They will follow up in 4-6 weeks. 6. GI/DVT prophylaxis 7. Pain control per current medication regimen 8. More recommendations to follow based on patient's progress Time with Patient: Greater than 30
[2019-04-09] MEDS: IPRATROPIUM-ALBUTEROL 3 ML NEB IH SCH ×4 (08:47→20:11)
--- NOTE | 2019-04-09 10:38 | P.PN ---
Subjective Progress Note Date: 04/09/19 Principal diagnosis: 1. 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 COPD 3. Recent smoking cessation 4. Hypertension 5. Hyperlipidemia 6. Type 2 diabetes 7. Hiatal hernia 8. Family history of heart disease and cancer 04/09/2019, patient seen evaluated examined during the rounds left upper lobe cancer status post resection and left lobectomy with lymph node dissection postop day #2 doing well pain is better under control, minimal air leak is present, left-sided upper pneumothorax with bibasilar basal atelectasis patient is instructed to continue chest PT Objective - Vital Signs Vital signs: Vital Signs Temp 98.4 F 04/09/19 07:48 Pulse 94 04/09/19 08:47 Resp 16 04/09/19 07:48 BP 152/76 04/09/19 07:48 Pulse Ox 96 04/09/19 07:48 Intake & Output 04/08/19 04/09/19 04/09/19 18:59 06:59 18:59 Output Total 0 150 0 Balance 0 -150 0 Weight 50.9 kg Output: Chest Tube Drainage 0 150 0 Chest Tube Left 0 150 0 Other: Voiding Method Indwelling Catheter Indwelling Catheter Toilet - Exam General appearance: Present: cooperative, no acute distress - Respiratory Details: Lungs sounds diminished bilaterally. Respirations even, nonlabored. Currently on 3 L nasal cannula with oxygen saturation 93%. Only able to achieve 500 mL on her incentive spirometry. Weak cough. Left pleural chest tube to waterseal, 40 mL serosanguineous drainage overnight, 200 mL since surgery, small intermittent air leak present, tidaling present. - Cardiovascular Details: S1, S2 present. Regular rate and rhythm, sinus rhythm on telemetry. Palpable peripheral pulses bilaterally. No edema present. No calf pain or tenderness noted. SCDs present. - Gastrointestinal Gastrointestinal Comment(s): abdomen soft, nontender, nondistended. Active bowel sounds 4 quadrants. Tolerating diet. Positive bowel movement this morning per patient - Genitourinary Genitourinary Comment(s): Lugo was discontinued yesterday. Patient states she has been up to the bathroom to void - Integumentary Integumentary Comment(s): Skin is warm and dry with evidence of good perfusion. Left lateral chest tube site covered with dry intact dressing. - Neurologic Neurologic: Present: CNII-XII intact - Musculoskeletal Musculoskeletal: Present: gait normal, strength equal bilaterally - Psychiatric Psychiatric: Present: A&O x's 3, appropriate affect, intact judgment & insight - Labs CBC & Chem 7: 04/09/19 04:46 04/09/19 04:46 Labs: Abnormal Lab Results - Last 24 Hours (Table) 04/08/19 04/08/19 04/08/19 Range/Units 11:38 16:08 16:54 RBC (3.80-5.40) m/uL Hgb (11.4-16.0) gm/dL Hct (34.0-46.0) % Glucose (74-99) mg/dL POC Glucose (mg/dL) 174 H 147 H 197 H (75-99) mg/dL 04/08/19 04/09/19 04/09/19 Range/Units 20:50 04:46 04:46 RBC 3.63 L (3.80-5.40) m/uL Hgb 10.9 L (11.4-16.0) gm/dL Hct 32.9 L (34.0-46.0) % Glucose 165 H (74-99) mg/dL POC Glucose (mg/dL) 143 H (75-99) mg/dL 04/09/19 Range/Units 06:33 RBC (3.80-5.40) m/uL Hgb (11.4-16.0) gm/dL Hct (34.0-46.0) % Glucose (74-99) mg/dL POC Glucose (mg/dL) 179 H (75-99) mg/dL Assessment and Plan Assessment: status post left upper lobe resection and mediastinal lymph node dissection for left upper lobe cancer COPD severe category Hypertension hypertensive cardiovascular disease Dyslipidemia Type 2 diabetes mellitus Plan: continue pleural VAC in [place] and age Continue oxygen titrated as tolerated Deep breathing exercises incentive spirometry We'll follow clinical course closely DVT and peptic ulcer disease prophylaxis Continue pain management Time with Patient: Greater than 30
[2019-04-09 11:51] LABS: Glucose,Whole Blood 113 mg/dL (75-99)
[2019-04-09 17:10] LABS: Glucose,Whole Blood 163 mg/dL (75-99)
[2019-04-09] MEDS: metFORMIN 500 MG TAB PO SCH (17:13)
[2019-04-09] MEDS: ATORVASTATIN 20 MG TAB PO SCH (20:34)
[2019-04-09 21:06] LABS: Glucose,Whole Blood 139 mg/dL (75-99)
[2019-04-10 06:09] LABS: Glucose,Whole Blood 183 mg/dL (75-99)
[2019-04-10] MEDS: KETOROLAC 30 MG/ML 1 ML VIAL IVP SCH ×4 (06:38→23:19)
[2019-04-10] MEDS: PANTOPRAZOLE 40 MG TABLET PO SCH (06:39)
[2019-04-10] MEDS: INSULIN ASPART (NovoLOG) 100 UNIT/ML VIAL SQ SCH ×4 (06:39→20:37)
--- NOTE | 2019-04-10 06:42 | XR ---
EXAMINATION TYPE: XR chest 2V DATE OF EXAM: 04/10/2019 HISTORY: Post-lobectomy. REFERENCE: Previous study dated 04/09/2019. FINDINGS: A left pleural drain remains in place. There is a tiny left apical pneumothorax. This has d ecreased from previous. There is volume loss in the left lung with elevation left hemidiaphragm. Aera tion at the left lung base has improved. Some residual airspace disease persists. Minimal atelectasis present in the right lung base. The heart is not enlarged. IMPRESSION: 1. IMPROVING LEFT APICAL PNEUMOTHORAX. 2. IMPROVED AERATION, LEFT LUNG BASE.
[2019-04-10] MEDS: amLODIPine 10 MG TAB PO SCH (08:02)
[2019-04-10] MEDS: ASPIRIN 81 MG PO SCH (08:02)
[2019-04-10] MEDS: LISINOPRIL 20 MG TAB PO SCH (08:02)
[2019-04-10] MEDS: IPRATROPIUM-ALBUTEROL 3 ML NEB IH SCH ×4 (08:02→18:56)
[2019-04-10] MEDS: METOPROLOL TARTRATE 50 MG TAB PO SCH ×2 (08:02→20:39)
[2019-04-10] MEDS: HEPARIN SODIUM,PORCINE 5,000 UNIT/ML 1 ML VIAL SQ SCH ×3 (08:04→23:18)
--- NOTE | 2019-04-10 08:06 | P.PN ---
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 Previous medical history of COPD, recent smoking cessation, hypertension, hyperlipidemia, type 2 diabetes, hiatal hernia, family history of heart disease and cancer. POD #3 robotic assisted thoracoscopic left upper lobectomy with mediastinal lymph node dissection. The patient is currently sitting up in bed on the cardiac stepdown unit in no acute distress eating breakfast. Denies pain or shortness of breath at this time. Left pleural chest tube placed to waterseal with small intermittent air leak still present. No new concerns. Objective - Vital Signs Vital signs: Vital Signs Temp 98.2 F 04/10/19 04:00 Pulse 89 04/10/19 04:00 Resp 18 04/10/19 04:00 BP 168/72 04/10/19 04:00 Pulse Ox 93 L 04/10/19 04:00 Intake & Output 04/09/19 04/10/19 04/10/19 18:59 06:59 18:59 Intake Total 20 Output Total 50 40 Balance -30 -40 Weight 50.6 kg Intake: IV 20 0.9 20 Output: Chest Tube Drainage 50 40 Chest Tube Left 50 40 Other: Voiding Method Toilet Toilet # Voids 2 - Constitutional General appearance: Present: cooperative, no acute distress - Respiratory Details: Lungs sounds diminished bilaterally. Respirations even, nonlabored. Currently on 2 L nasal cannula with oxygen saturation 91%. Only able to achieve 500 mL on her incentive spirometry. Weak cough. Left pleural chest tube to waterseal, 200 mL output in 24 hours, small intermittent air leak remains present, tidaling present. - Cardiovascular Details: S1, S2 present. Regular rate and rhythm, sinus rhythm to sinus tach on telemetry. Palpable peripheral pulses bilaterally. No edema present. No calf pain or tenderness noted. SCDs present. - Gastrointestinal Gastrointestinal Comment(s): Abdomen soft, nontender, nondistended. Active bowel sounds 4 quadrants. Tolerating diet. Positive bowel movement per patient - Genitourinary Genitourinary Comment(s): Patient continues to ambulate to the bathroom to void - Integumentary Integumentary Comment(s): Skin is warm and dry with evidence of good perfusion. Left lateral chest tube site covered with dry intact dressing. - Neurologic Neurologic: Present: CNII-XII intact - Musculoskeletal Musculoskeletal: Present: gait normal, strength equal bilaterally - Psychiatric Psychiatric: Present: A&O x's 3, appropriate affect, intact judgment & insight - Allied health notes Allied health notes reviewed: nursing - Labs CBC & Chem 7: 04/09/19 04:46 04/09/19 04:46 Labs: Abnormal Lab Results - Last 24 Hours (Table) 04/09/19 04/09/19 04/09/19 Range/Units 11:34 17:09 21:04 POC Glucose (mg/dL) 113 H 163 H 139 H (75-99) mg/dL 04/10/19 Range/Units 06:07 POC Glucose (mg/dL) 183 H (75-99) mg/dL - Imaging and Cardiology Chest x-ray: report reviewed, image reviewed Assessment and Plan Assessment: 1. 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 COPD 3. Recent smoking cessation 4. Hypertension 5. Hyperlipidemia 6. Type 2 diabetes 7. Hiatal hernia 8. Family history of heart disease and cancer Plan: 1. Continue left pleural chest tube to water seal. Will monitor for resolution of air leak. Surgical pathology pending 2. Wean O2 as tolerated. Encourage incentive spirometry use 10 times every hour while awake. Bronchodilators per pulmonology 3. Will monitor daily x-rays 4. Continue home medication regimen. Lopressor increased to 50 mg BID 5. Oncology consulted per Dr. Whitfield. They will follow up in 4-6 weeks. 6. GI/DVT prophylaxis 7. Pain control per current medication regimen 8. More recommendations to follow based on patient's progress Time with Patient: Greater than 30
[2019-04-10 11:34] LABS: Glucose,Whole Blood 133 mg/dL (75-99)
--- NOTE | 2019-04-10 13:51 | P.PN ---
Subjective Progress Note Date: 04/10/19 Principal diagnosis: 1. 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 COPD 3. Recent smoking cessation 4. Hypertension 5. Hyperlipidemia 6. Type 2 diabetes 7. Hiatal hernia 8. Family history of heart disease and cancer 04/10/2019, seen eval reexamined during the rounds labs reviewed medications reviewed radiographic studies revealed that the, he still have intermittent air leak present through the pleural VAC, denies any chest pain shortness of breath stable, chest x-ray performed this morning revealed improving apical pneumothorax on the left side as well as improved aviation of left lung 04/09/2019, patient seen evaluated examined during the rounds left upper lobe cancer status post resection and left lobectomy with lymph node dissection posto p day #2 doing well pain is better under control, minimal air leak is present, left-sided upper pneumothorax with bibasilar basal atelectasis patient is instructed to continue chest PT Objective - Vital Signs Vital signs: Vital Signs Temp 97.5 F L 04/10/19 11:52 Pulse 106 H 04/10/19 11:52 Resp 18 04/10/19 11:52 BP 166/71 04/10/19 11:52 Pulse Ox 95 04/10/19 11:52 Intake & Output 04/09/19 04/10/19 04/10/19 18:59 06:59 18:59 Intake Total 20 480 Output Total 50 40 90 Balance -30 -40 390 Weight 50.6 kg Intake: IV 20 0.9 20 Oral 480 Output: Chest Tube Drainage 50 40 90 Chest Tube Left 50 40 90 Other: Voiding Method Toilet Toilet Toilet # Voids 2 1 # Bowel Movements 0 - Exam General appearance: Present: cooperative, no acute distress - Respiratory Details: Lungs sounds diminished bilaterally. Respirations even, nonlabored. Currently on 3 L nasal cannula with oxygen saturation 93%. Only able to achieve 500 mL on her incentive spirometry. Weak cough. Left pleural chest tube to waterseal, 40 mL serosanguineous drainage overnight, 200 mL since surgery, small intermittent air leak present, tidaling present. - Cardiovascular Details: S1, S2 present. Regular rate and rhythm, sinus rhythm on telemetry. Palpable peripheral pulses bilaterally. No edema present. No calf pain or tenderness noted. SCDs present. - Gastrointestinal Gastrointestinal Comment(s): abdomen soft, nontender, nondistended. Active bowel sounds 4 quadrants. To lerating diet. Positive bowel movement this morning per patient - Genitourinary Genitourinary Comment(s): Lugo was discontinued yesterday. Patient states she has been up to the bathroom to void - Integumentary Integumentary Comment(s): Skin is warm and dry with evidence of good perfusion. Left lateral chest tube site covered with dry intact dressing. - Neurologic Neurologic: Present: CNII-XII intact - Musculoskeletal Musculoskeletal: Present: gait normal, strength equal bilaterally - Psychiatric Psychiatric: Present: A&O x's 3, appropriate affect, intact judgment & insight - Labs CBC & Chem 7: 04/09/19 04:46 04/09/19 04:46 Labs: Abnormal Lab Results - Last 24 Hours (Table) 04/09/19 04/09/19 04/10/19 Range/Units 17:09 21:04 06:07 POC Glucose (mg/dL) 163 H 139 H 183 H (75-99) mg/dL 04/10/19 Range/Units 11:29 POC Glucose (mg/dL) 133 H (75-99) mg/dL Assessment and Plan Assessment: status post left upper lobe resection and mediastinal lymph node dissection for left upper lobe cancer COPD severe category Residue of the left pneumothorax Hypertension hypertensive cardiovascular disease Dyslipidemia Type 2 diabetes mellitus Plan: continue pleural VAC in [place] and age Continue oxygen titrated as tolerated Deep breathing exercises incentive spirometry We'll follow clinical course closely DVT and peptic ulcer disease prophylaxis Continue pain management Time with Patient: Greater than 30
[2019-04-10 16:46] LABS: Glucose,Whole Blood 139 mg/dL (75-99)
[2019-04-10] MEDS: metFORMIN 500 MG TAB PO SCH (16:50)
[2019-04-10 20:34] LABS: Glucose,Whole Blood 127 mg/dL (75-99)
[2019-04-10] MEDS: ATORVASTATIN 20 MG TAB PO SCH (20:39)
[2019-04-11 06:11] LABS: Glucose,Whole Blood 167 mg/dL (75-99)
[2019-04-11 06:14] LABS: HCT 31.8 % (34.0-46.0); HGB 10.5 gm/dL (11.4-16.0); MCH 29.9 pg (25.0-35.0); MCHC 32.9 g/dL (31.0-37.0); Mean Platelet Volume 7.1; Platelet Count 472 k/uL (150-450); RBC 3.49 m/uL (3.80-5.40); RDW 12.5 % (11.5-15.5); WBC 8.5 k/uL (3.8-10.6)
[2019-04-11 06:28] LABS: African American GFR (CKD) >90 (>60 ml/min/1.73 sqM); Anion Gap 8 mmol/L; Blood Urea Nitrogen 13 mg/dL (7-17); Calcium 8.9 mg/dL (8.4-10.2); Carbon Dioxide 29 mmol/L (22-30); Chloride 104 mmol/L (98-107); Glucose 150 mg/dL (74-99); Non-African American GFR(CKD) >90 (>60 ml/min/1.73 sqM); Sodium 141 mmol/L (137-145)
[2019-04-11] MEDS: PANTOPRAZOLE 40 MG TABLET PO SCH (06:38)
[2019-04-11] MEDS: INSULIN ASPART (NovoLOG) 100 UNIT/ML VIAL SQ SCH ×4 (06:38→21:43)
[2019-04-11] MEDS: KETOROLAC 30 MG/ML 1 ML VIAL IVP SCH ×4 (06:38→23:50)
--- NOTE | 2019-04-11 07:53 | P.PN ---
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 Previous medical history of COPD, recent smoking cessation, hypertension, hyperlipidemia, type 2 diabetes, hiatal hernia, family history of heart disease and cancer. POD #4 robotic assisted thoracoscopic left upper lobectomy with mediastinal lymph node dissection. Postoperative left sided pneumothorax, expected outcome of this type of surgery The patient is currently sitting up in bed on the cardiac stepdown unit in no acute distress about to eat breakfast. Continues to deny pain or shortness of breath, requiring no PRN pain medication. Left pleural chest tube continues to waterseal with small intermittent air leak still present, especially with forceful coughing. No new concerns. Objective - Vital Signs Vital signs: Vital Signs Temp 99.0 F 04/11/19 04:00 Pulse 93 04/11/19 04:00 Resp 16 04/11/19 04:00 BP 139/65 04/11/19 04:00 Pulse Ox 93 L 04/11/19 04:00 Intake & Output 04/10/19 04/11/19 04/11/19 18:59 06:59 18:59 Intake Total 730 10 Output Total 110 100 Balance 620 -90 Weight 49.8 kg Intake: IV 10 10 0.9 10 10 Oral 720 Output: Chest Tube Drainage 110 100 Chest Tube Left 110 100 Other: Voiding Method Toilet Toilet # Voids 2 1 # Bowel Movements 0 - Constitutional General appearance: Present: cooperative, no acute distress - Respiratory Details: Lungs sounds diminished bilaterally. Respirations even, nonlabored. Currently on 2 L nasal cannula with oxygen saturation 93%. Able to achieve 500-750 mL on her incentive spirometry. Strong cough. Left pleural chest tube to waterseal, 100 mL serous output overnight, 200 mL output in 24 hours, small intermittent air leak remains present especially with forceful coughing, tidaling present. - Cardiovascular Details: S1, S2 present. Regular rate and rhythm, sinus rhythm on telemetry. Palpable peripheral pulses bilaterally. No edema present. No calf pain or tenderness noted. SCDs present. - Gastrointestinal Gastrointestinal Comment(s): Abdomen soft, nontender, nondistended. Active bowel sounds 4 quadrants. Tolerating diet. Positive bowel movement per patient - Genitourinary Genitourinary Comment(s): Patient continues to ambulate to the bathroom to void - Integumentary Integumentary Comment(s): Skin is warm and dry with evidence of good perfusion. Left lateral chest tube site covered with dry intact dressing. - Neurologic Neurologic: Present: CNII-XII intact - Musculoskeletal Musculoskeletal: Present: gait normal, strength equal bilaterally - Psychiatric Psychiatric: Present: A&O x's 3, appropriate affect, intact judgment & insight - Allied health notes Allied health notes reviewed: nursing - Labs CBC & Chem 7: 04/11/19 05:38 04/11/19 05:38 Labs: Abnormal Lab Results - Last 24 Hours (Table) 04/10/19 04/10/19 04/10/19 Range/Units 11:29 16:44 20:33 RBC (3.80-5.40) m/uL Hgb (11.4-16.0) gm/dL Hct (34.0-46.0) % Plt Count (150-450) k/uL Glucose (74-99) mg/dL POC Glucose (mg/dL) 133 H 139 H 127 H (75-99) mg/dL 04/11/19 04/11/19 04/11/19 Range/Units 05:38 05:38 06:09 RBC 3.49 L (3.80-5.40) m/uL Hgb 10.5 L (11.4-16.0) gm/dL Hct 31.8 L (34.0-46.0) % Plt Count 472 H (150-450) k/uL Glucose 150 H (74-99) mg/dL POC Glucose (mg/dL) 167 H (75-99) mg/dL - Imaging and Cardiology Chest x-ray: image reviewed Assessment and Plan Assessment: 1. 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 COPD 3. Recent smoking cessation 4. Hypertension 5. Hyperlipidemia 6. Type 2 diabetes 7. Hiatal hernia 8. Family history of heart disease and cancer Plan: 1. Continue left pleural chest tube to water seal. Will monitor for resolution of air leak. Surgical pathology pending 2. Wean O2 as tolerated. Encourage incentive spirometry use 10 times every hour while awake. Bronchodilators per pulmonology 3. Increase activity, ambulate in hallway. Will order PT 4. Will monitor daily x-rays 5. Continue home medication regimen, lopressor 6. Oncology consulted per Dr. Whitfield. They will follow up in 4-6 weeks. 7. GI/DVT prophylaxis 8. Pain control per current medication regimen 9. More recommendations to follow based on patient's progress Time with Patient: Greater than 30
[2019-04-11] MEDS: IPRATROPIUM-ALBUTEROL 3 ML NEB IH SCH ×4 (08:37→19:07)
--- NOTE | 2019-04-11 09:02 | XR ---
EXAMINATION TYPE: XR chest 2V DATE OF EXAM: 04/11/2019 COMPARISON: 04/10/2019 HISTORY: Left upper lobectomy. Postsurgical evaluation. TECHNIQUE: Frontal and lateral views of the chest are obtained. FINDINGS: Left-sided thoracostomy tube is similar in position with trace left apical pneumothorax re maining and minimal subcutaneous emphysema. Left hemithorax volume loss is seen. Surgical sutures rani und the left hilum. Scattered areas of left-sided atelectasis. Right lung remains well aerated. Diffu se osseous demineralization is present. Mild degenerative change of the spine. IMPRESSION: Stable postsurgical changes of the left hemithorax with trace left pneumothorax remainin g.
[2019-04-11] MEDS: metFORMIN 500 MG TAB PO SCH (10:42)
[2019-04-11] MEDS: ASPIRIN 81 MG PO SCH (10:43)
[2019-04-11] MEDS: HEPARIN SODIUM,PORCINE 5,000 UNIT/ML 1 ML VIAL SQ SCH ×3 (10:43→23:50)
[2019-04-11] MEDS: amLODIPine 10 MG TAB PO SCH (10:43)
[2019-04-11] MEDS: LISINOPRIL 20 MG TAB PO SCH (10:43)
[2019-04-11] MEDS: METOPROLOL TARTRATE 50 MG TAB PO SCH ×2 (10:43→21:45)
[2019-04-11 11:30] LABS: Glucose,Whole Blood 141 mg/dL (75-99)
--- NOTE | 2019-04-11 15:46 | CDI ---
Documentation Clarification Form Date: 04/11/2019 3:18:46 PM From: Katie Byrnes RN, CCDS Admit Date: 04/07/2019 6:13:00 AM Patient Name: Mony Khan Visit Number: [id number] Discharge Date: ATTENTION: The Clinical Documentation Specialists (CDI) and [facility] Coding Staff appreciate your assistance in clarifying documentation. Please respond to the clarification below the line at the bottom and electronically sign. The CDI & [facility] Coding staff will review the response and follow-up if needed. Please note: Queries are made part of the Legal Health Record. If you have any questions, please contact the author of this message via ITS. Dr. Ronny Elias Small intermittent air leak is documented in the progress notes on 04/08/14 and in subsequent documentation. 04/09/19 Pulmonary (Dr. Albright) progress notes and subsequent documentation has minimal air leak is present, left-sided upper pneumothorax with bibasilar atelectasis. Patients Admitting Diagnosis: Primary carcinoma left upper lobe of lung Post-Operative Diagnosis: Same Procedure performed: Robotic- assisted thorascopic left upper lobectomy with mediastinal lymph node dissection History/Risk Factors: Non-small cell carcinoma left upper loge, COPD, Hypertension, Diabetes mellitus Clinical Indicators: 68-year-old female who was diagnosed with stage 1 non-small cell carcinoma in the left upper lobe present for a robotic-assisted thoracoscopic let upper lobectomy. Post procedure initial chest x-ray on 04/07/19 show no pneumothorax appreciated. On 04/09/19 follow-up chest x-ray is showing left-sided pneumothorax, and continue on 04/11/19 chest x-ray. Treatment: Chest tube to water seal O2 titration as tolerated Deep breathing exercise incentive spirometry use Bronchodilatory per pulmonology Pain control per current medication regimen In order to accurately reflect this patients severity of illness, please clarify if the post-operative diagnosis, left pneumothorax is: An expected post-procedural or post-surgical condition An unexpected post-procedural or post-surgical condition, related to the patients underlying medical comorbidities Other, please specify Unable to determine (Last Revision: July 2018) expected post op condition MTDD
[2019-04-11 16:34] LABS: Glucose,Whole Blood 119 mg/dL (75-99)
[2019-04-11 17:20] LABS: % Iron Saturation 15.65 (12.00-45.00)
[2019-04-11 17:28] LABS: Ferritin 92.7 ng/mL (10.0-291.0)
[2019-04-11 20:54] LABS: Glucose,Whole Blood 112 mg/dL (75-99)
[2019-04-11] MEDS: ATORVASTATIN 20 MG TAB PO SCH (21:45)
--- NOTE | 2019-04-11 21:47 | PN ---
PROGRESS NOTE DATE OF SERVICE: 04/11/2019. She has been hemodynamically stable. She continues to have an air leak, which she has been walking. On physical examination, vital signs stable. She is afebrile. Chest reveals chest tube in place with a small air leak. Cardiovascular system reveals an S1, S2. Abdomen is soft. There is no edema. Chest x-ray and labs are reviewed. IMPRESSION: At this time: 1. Small left-sided residual pneumothorax expected from her surgery. 2. Status post left upper lobectomy. Await final pathology. 3. Mild chronic obstructive pulmonary disease. Continue bronchodilators. Increase activity level. Her prognosis is fair. MMODL / IJN: [id number] /
[2019-04-12 06:18] LABS: Glucose,Whole Blood 156 mg/dL (75-99)
[2019-04-12] MEDS: PANTOPRAZOLE 40 MG TABLET PO SCH (06:22)
[2019-04-12] MEDS: KETOROLAC 30 MG/ML 1 ML VIAL IVP SCH ×2 (06:22→17:35)
[2019-04-12] MEDS: INSULIN ASPART (NovoLOG) 100 UNIT/ML VIAL SQ SCH ×4 (06:23→21:57)
[2019-04-12] MEDS ORDERED: SENNOSIDES-DOCUSATE SODIUM 1 EACH TAB PO PRN (07:10)
--- NOTE | 2019-04-12 07:19 | P.PN ---
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 Previous medical history of COPD, recent smoking cessation, hypertension, hyperlipidemia, type 2 diabetes, hiatal hernia, family history of heart disease and cancer. POD #5 robotic assisted thoracoscopic left upper lobectomy with mediastinal lymph node dissection. Postoperative left sided pneumothorax, expected outcome of this type of surgery The patient is currently sitting up in bed on the cardiac stepdown unit in no acute distress eating breakfast. Continues to deny pain or shortness of breath, requiring no PRN pain medication. Left pleural chest tube continues to waterseal with small intermittent air leak still present with forceful coughing. Ambulated in hallway yesterday with physical therapy, no difficulties. No new concerns. Objective - Vital Signs Vital signs: Vital Signs Temp 98.5 F 04/12/19 04:00 Pulse 81 04/12/19 04:00 Resp 18 04/12/19 04:00 BP 149/67 04/12/19 04:00 Pulse Ox 94 L 04/12/19 04:00 Intake & Output 04/11/19 04/12/19 04/12/19 18:59 06:59 18:59 Intake Total 680 Output Total 290 130 Balance 390 -130 Weight 49.8 kg Intake: Oral 680 Output: Chest Tube Drainage 90 130 Chest Tube Left 90 130 Urine 200 Other: Voiding Method Toilet # Voids 1 - Constitutional General appearance: Present: cooperative, no acute distress - Respiratory Details: Lungs sounds diminished bilaterally. Respirations even, nonlabored. Currently on 3 L nasal cannula with oxygen saturation 94%. Still only able to achieve 500-750 mL on her incentive spirometry. Strong cough. Left pleural chest tube to waterseal, 80 mL serous output overnight, 210 mL output in 24 hours, small intermittent air leak remains present with forceful coughing, tidaling present. - Cardiovascular Details: S1, S2 present. Regular rate and rhythm, sinus rhythm on telemetry. Palpable peripheral pulses bilaterally. No edema present. No calf pain or tenderness noted. SCDs present. - Gastrointestinal Gastrointestinal Comment(s): Abdomen soft, nontender, nondistended. Active bowel sounds 4 quadrants. Tolerating diet. Positive bowel movement per patient - Genitourinary Genitourinary Comment(s): Patient continues to ambulate to the bathroom to void - Integumentary Integumentary Comment(s): Skin is warm and dry with evidence of good perfusion. Left lateral chest tube site covered with dry intact dressing. - Neurologic Neurologic: Present: CNII-XII intact - Musculoskeletal Musculoskeletal: Present: gait normal, strength equal bilaterally - Psychiatric Psychiatric: Present: A&O x's 3, appropriate affect, intact judgment & insight - Allied health notes Allied health notes reviewed: nursing - Labs CBC & Chem 7: 04/11/19 05:38 04/11/19 05:38 Labs: Abnormal Lab Results - Last 24 Hours (Table) 04/11/19 04/11/19 04/11/19 Range/Units 05:38 11:29 16:32 POC Glucose (mg/dL) 141 H 119 H (75-99) mg/dL Iron 41 L (50-170) ug/dL Vitamin B12 151.0 L (200.0-944.0) pg/mL 04/11/19 04/12/19 Range/Units 20:52 06:17 POC Glucose (mg/dL) 112 H 156 H (75-99) mg/dL Iron (50-170) ug/dL Vitamin B12 (200.0-944.0) pg/mL - Imaging and Cardiology Chest x-ray: image reviewed Assessment and Plan Assessment: 1. 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 COPD 3. Recent smoking cessation 4. Hypertension 5. Hyperlipidemia 6. Type 2 diabetes 7. Hiatal hernia 8. Family history of heart disease and cancer 9. Postoperative pneumothorax Plan: 1. Continue left pleural chest tube to water seal. Will monitor for resolution of air leak. Surgical pathology pending 2. Wean O2 as tolerated. Encourage incentive spirometry use 10 times every hour while awake. Bronchodilators per pulmonology 3. Increase activity, ambulate in hallway, patient should be up in chair for all meals 4. Will monitor daily x-rays 5. Continue home medication regimen, lopressor 6. Oncology consulted per Dr. Whitfield. They will follow up in 4-6 weeks. 7. GI/DVT prophylaxis 8. Pain control per current medication regimen 9. More recommendations to follow based on patient's progress Time with Patient: Greater than 30
[2019-04-12] MEDS: IPRATROPIUM-ALBUTEROL 3 ML NEB IH SCH ×4 (07:35→19:17)
--- NOTE | 2019-04-12 08:40 | XR ---
EXAMINATION TYPE: XR chest 2V DATE OF EXAM: 04/12/2019 COMPARISON: 04/11/2019 HISTORY: Status post left upper lobectomy. Follow-up exam. TECHNIQUE: Frontal and lateral views of the chest are obtained. FINDINGS: Very trace left apical pneumothorax remains, improved from the prior. Left thoracostomy tu be is stable. Postsurgical left hemithorax volume loss and left hemidiaphragm elevation. Minimal jordyn hilar atelectasis bilaterally. Cardiomediastinal silhouette is stable. No acute osseous pathology. IMPRESSION: Improved trace left apical pneumothorax and postsurgical change.
[2019-04-12] MEDS ORDERED: SENNOSIDES-DOCUSATE SODIUM 1 EACH TAB PO SCH (09:00)
[2019-04-12] MEDS: ASPIRIN 81 MG PO SCH (09:14)
[2019-04-12] MEDS: amLODIPine 10 MG TAB PO SCH (09:14)
[2019-04-12] MEDS: METOPROLOL TARTRATE 50 MG TAB PO SCH ×2 (09:14→21:58)
[2019-04-12] MEDS: HEPARIN SODIUM,PORCINE 5,000 UNIT/ML 1 ML VIAL SQ SCH ×3 (09:14→23:35)
[2019-04-12] MEDS: LISINOPRIL 20 MG TAB PO SCH (09:14)
[2019-04-12 11:57] LABS: Glucose,Whole Blood 135 mg/dL (75-99)
--- NOTE | 2019-04-12 14:49 | PN ---
PROGRESS NOTE DATE OF SERVICE: 04/12/2019 Patient is a 68-year-old female who is seen sitting up in a chair, is awake, alert, comfortable at this time. Patient is afebrile, hemodynamically stable, in no acute distress. Patient is using IS and is able to reach 750. PHYSICAL EXAM: Vital signs, temp is 98.5, heart rate is 84, respiratory rate is 17, blood pressure is 149/67, O2 saturation 94% on 3 L O2 via nasal cannula. HEENT. Head is normocephalic, atraumatic. NECK: Supple. Trachea is midline. LUNGS: With scattered wheezes on the left. Clear, diminished on the right. HEART: S1, S2 heard. Not tachycardic. ABDOMEN: Soft, bowel sounds are heard. EXTREMITIES: With no edema. NEUROLOGIC: Patient is awake and alert. LABS: No new labs to review. IMAGING: Chest x-ray done this a.m. shows improved trace left apical pneumothorax and postsurgical change. IMPRESSION: 1. Small left-sided residual pneumothorax expected from her surgery. 2. Status post left upper lobectomy. Final pathology is pending. 3. Mild chronic obstructive pulmonary disease. PLAN: Continue current medications which have been reviewed. Continue incentive spirometry with pulmonary hygiene. Continue to increase activity as tolerated. Continue GI and DVT prophylaxis and will follow patient closely with you making further changes as necessary. MMODL / IJN: [id number] /
[2019-04-12 16:47] LABS: Glucose,Whole Blood 127 mg/dL (75-99)
[2019-04-12] MEDS: metFORMIN 500 MG TAB PO SCH (17:36)
[2019-04-12 20:35] LABS: Glucose,Whole Blood 188 mg/dL (75-99)
[2019-04-12] MEDS: ATORVASTATIN 20 MG TAB PO SCH (21:58)
[2019-04-13 06:03] LABS: Glucose,Whole Blood 158 mg/dL (75-99)
[2019-04-13] MEDS: PANTOPRAZOLE 40 MG TABLET PO SCH (06:41)
[2019-04-13] MEDS: INSULIN ASPART (NovoLOG) 100 UNIT/ML VIAL SQ SCH ×4 (06:41→20:25)
--- NOTE | 2019-04-13 06:48 | XR ---
EXAMINATION TYPE: XR chest 2V DATE OF EXAM: 04/13/2019 COMPARISON: Chest x-ray from yesterday and older studies. HISTORY: Postpartial pneumonectomy progress study. TECHNIQUE: Frontal and lateral views of the chest are obtained. FINDINGS: Persistent left apical chest tube without identifiable pneumothorax. Left-sided volume los s with mediastinal shift and elevated left hemidiaphragm redemonstrated. Background chronic emphysema tous change without suspicious new focal airspace opacity or significant pleural effusion is seen rosalie aterally. Cardiac silhouette is stable and within normal limits with atherosclerotic aorta. Osseous s tructures remain demineralized IMPRESSION: Overall stable findings, left-sided surgical change and volume loss and left-sided chest tube without residual pneumothorax.
[2019-04-13] MEDS: IPRATROPIUM-ALBUTEROL 3 ML NEB IH SCH ×4 (07:23→19:49)
[2019-04-13] MEDS: METOPROLOL TARTRATE 50 MG TAB PO SCH ×2 (09:41→20:25)
[2019-04-13] MEDS: amLODIPine 10 MG TAB PO SCH (09:41)
[2019-04-13] MEDS: ASPIRIN 81 MG PO SCH (09:41)
[2019-04-13] MEDS: HEPARIN SODIUM,PORCINE 5,000 UNIT/ML 1 ML VIAL SQ SCH ×3 (09:42→23:30)
[2019-04-13] MEDS: LISINOPRIL 20 MG TAB PO SCH (09:42)
[2019-04-13 11:29] LABS: Glucose,Whole Blood 153 mg/dL (75-99)
[2019-04-13 13:42] VITALS: BMI 19.3
[2019-04-13 16:51] LABS: Glucose,Whole Blood 133 mg/dL (75-99)
[2019-04-13] MEDS: metFORMIN 500 MG TAB PO SCH (17:59)
--- NOTE | 2019-04-13 18:17 | P.PN ---
Subjective Progress Note Date: 04/13/19 Principal diagnosis: NSCLC resected In follow-up today patient is doing well, she thinks she is having the chest tube removed today, she does have to brace when coughing and deep breathing, mild shortness of breath on exertion, she is comfortable at rest, no expectoration, hemoptysis, fevers, slight wheezing. She is tolerating a diet, she has had a bowel movement Objective - Vital Signs Vital signs: Vital Signs Temp 99.0 F 04/13/19 16:00 Pulse 96 04/13/19 16:00 Resp 18 04/13/19 16:00 BP 133/63 04/13/19 16:00 Pulse Ox 92 L 04/13/19 16:00 Intake & Output 04/12/19 04/13/19 04/13/19 18:59 06:59 18:59 Intake Total 920 594 Output Total 260 Balance 920 -260 594 Weight 49.5 kg 49.5 kg Intake: Oral 920 594 Output: Chest Tube Drainage 160 Chest Tube Left 160 Urine 100 Other: Voiding Method Toilet # Voids 1 2 - Constitutional Constitutional Comment(s): petite General appearance: Present: cooperative, no acute distress - EENT Eyes: Present: anicteric sclerae, EOMI, poor dentition ENT: Present: hearing grossly normal, normal oropharynx - Respiratory Respiratory: left: other (chest tube, absent breath sounds in the base), bilateral: diminished, wheezing (end expiratory) - Cardiovascular Rhythm: regular Heart sounds: normal: S1, S2 - Peripheral edema leg Peripheral Edema: bilateral: None - Gastrointestinal General gastrointestinal: Present: normal bowel sounds, soft - Integumentary Integumentary: Present: normal, normal turgor - Neurologic Neurologic: Present: CNII-XII intact - Musculoskeletal Musculoskeletal: Present: strength equal bilaterally - Psychiatric Psychiatric: Present: A&O x's 3, appropriate affect, intact judgment & insight - Labs CBC & Chem 7: 04/11/19 05:38 04/11/19 05:38 Labs: Abnormal Lab Results - Last 24 Hours (Table) 04/12/19 04/13/19 04/13/19 Range/Units 20:33 06:02 11:28 POC Glucose (mg/dL) 188 H 158 H 153 H (75-99) mg/dL 12/18/19 Range/Units 16:50 POC Glucose (mg/dL) 133 H (75-99) mg/dL Assessment and Plan (1) Primary lung adenocarcinoma Narrative/Plan: We reviewed path report, including a level [address] I explained to the pt that I would have to confirm if there would be any treatment plans with the Oncologist. I explained that no treatment would even be considered until she is completely healed from surgery. I also told her that if no treatment was offered that her f/u the 1st year would be rather intense-Q 3 months. She stated understanding and is willing to f/u with Medical Oncologist. I will get her an appt to her DC paperwork Path report notes tissue sent for PDL-1 and NGS-we will watch for these results I reviewed the NCCN guidelines and based on the pathology report, patient is a stage IIIA. Per NCCN guidelines N2 disease should be treated with chemo or possibly chemo/XRT. I will review the case in greater detail with the attending Oncologist and if pt is still in the hospital I will discuss with her his final recommendations. Current Visit: Yes Status: Acute Priority: High Code(s): C34.90 - MALIGNANT NEOPLASM OF UNSP PART OF UNSP BRONCHUS OR LUNG SNOMED Code(s): 947501041
[2019-04-13 20:06] LABS: Glucose,Whole Blood 107 mg/dL (75-99)
[2019-04-13] MEDS: ATORVASTATIN 20 MG TAB PO SCH (20:25)
--- NOTE | 2019-04-13 22:30 | PN ---
PROGRESS NOTE DATE OF SERVICE: 04/13/2019 This patient's left chest tube has been removed. She denies any shortness of breath. On physical examination, her vitals are stable. She is afebrile. Chest reveals diminished breath sounds on the left. Cardiovascular system is in S1, S2. Abdomen is soft. There is no pedal edema. IMPRESSION AT THIS TIME: 1. Lung cancer with moderate to poorly differentiated pulmonary adenocarcinoma with negative lymph nodes. 2. Mild chronic obstructive pulmonary disease. 3. Left-sided pneumothorax as part of the left upper lobectomy. At this point in time, would encourage incentive spirometry, increase her activity level. Check a chest x-ray in the morning. Depending on how she does, we shall make further changes to her care. MMODL / IJN: [id number] /
[2019-04-14 06:24] LABS: Glucose,Whole Blood 171 mg/dL (75-99)
[2019-04-14] MEDS ORDERED: FUROSEMIDE 10 MG/ML 2 ML VIAL IV ONE (06:32)
--- NOTE | 2019-04-14 06:50 | P.PN ---
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 Previous medical history of COPD, recent smoking cessation, hypertension, hyperlipidemia, type 2 diabetes, hiatal hernia, family history of heart disease and cancer. POD #5 robotic assisted thoracoscopic left upper lobectomy with mediastinal lymph node dissection. Postoperative left sided pneumothorax, expected outcome of this type of surgery The patient is currently sitting up in bed on the cardiac stepdown unit in no acute distress. She denies any complaints of pain or shortness of breath.Left pleural chest tube continues to waterseal with no air leak is present. Achieving 750 mL on her incentive spirometry. She's been ambulating in the cardiac care unit in all way with minimal assistance. Objective - Vital Signs Vital signs: Vital Signs Temp 98.9 F 04/13/19 08:00 Pulse 104 H 04/13/19 08:00 Resp 16 04/13/19 08:00 BP 129/61 04/13/19 08:00 Pulse Ox 85 L 04/13/19 08:00 Intake & Output 04/12/19 04/13/19 04/13/19 18:59 06:59 18:59 Intake Total 920 236 Output Total 260 Balance 920 -260 236 Weight 49.5 kg Intake: Oral 920 236 Output: Chest Tube Drainage 160 Chest Tube Left 160 Urine 100 Other: Voiding Method Toilet # Voids 1 - Constitutional General appearance: Present: cooperative, no acute distress, thin - Respiratory Details: lungs sounds essentially clear throughout, diminished bilateral bases. Respirations are symmetrical and nonlabored.oxygen saturation's are 93% on 2 L nasal cannula and 85% with room air. Left pleural chest tube remains in place to water seal. No air leak is present. Draining thin serosanguineous drainage. Achieving 750 mL on her incentive spirometry. - Cardiovascular Details: Regular rhythm with a tachycardic rate. S1 and S2 present, negative for S3, gallop or murmur. Remote telemetry showing sinus tachycardia heart rate 100. No edema present. Knee-high sequential compression devices in place to bilateral lower extremities. - Gastrointestinal Gastrointestinal Comment(s): Abdomen is soft, nontender and nondistended. Active bowel sounds present in all 4 abdominal quadrants. No guarding or rigidity. No organomegaly appreciated. - Genitourinary Genitourinary Comment(s): voiding clear yellow urine. - Integumentary Integumentary Comment(s): skin is warm and dry. No clubbing or cyanosis is present. Left chest incisions with dressing clean, dry and intact. No drainage or redness present. - Neurologic Neurologic: Present: CNII-XII intact - Musculoskeletal Musculoskeletal: Present: gait normal, strength equal bilaterally - Psychiatric Psychiatric: Present: A&O x's 3, appropriate affect, intact judgment & insight - Allied health notes Allied health notes reviewed: nursing - Labs CBC & Chem 7: 04/11/19 05:38 04/11/19 05:38 Labs: Abnormal Lab Results - Last 24 Hours (Table) 04/11/19 04/12/19 04/12/19 Range/Units 05:38 11:51 16:46 POC Glucose (mg/dL) 135 H 127 H (75-99) mg/dL RBC Folate 942 H (280 - 791) ng/mL 04/12/19 04/13/19 Range/Units 20:33 06:02 POC Glucose (mg/dL) 188 H 158 H (75-99) mg/dL RBC Folate (280 - 791) ng/mL - Imaging and Cardiology Chest x-ray: report reviewed, image reviewed Assessment and Plan Assessment: 1. 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 chronic obstructive pulmonary disease 3. history of tobacco dependence with recent smoking cessation 4. Hypertension 5. Hyperlipidemia 6. Type 2 diabetes 7. Hiatal hernia 8. Family history of heart disease and cancer Plan: 1. Remove left pleural chest tube. 2. Wean O2 as tolerated. Encourage incentive spirometry use 10 times every hour while awake. Bronchodilators per pulmonology 3. Increase activity, ambulate in hallway. Physical therapy has been consulted and following. 4. Will monitor daily chest x-rays. 5. Continue home medication regimen, increase metoprolol tartrate to 75 mg by mouth twice a day. 6. Oncology consulted per Dr. Whitfield. They will follow up in 4-6 weeks. 7. GI/DVT prophylaxis 8. Pain control per current medication regimen 9. Discharge planning is in place. Anticipate discharge tomorrow morning 04/14/2019. 10. Pathology results are back and have been discussed with the patient by Dr. Ronny Elias. 11. The importance of continued smoking cessation has been discussed with the patient. 12. More recommendations to follow based on patient's progress Time with Patient: Greater than 30
[2019-04-14] MEDS: METOPROLOL TARTRATE 50 MG TAB PO SCH (06:53)
[2019-04-14] MEDS: PANTOPRAZOLE 40 MG TABLET PO SCH (06:53)
[2019-04-14] MEDS: LISINOPRIL 20 MG TAB PO SCH (06:53)
[2019-04-14] MEDS: amLODIPine 10 MG TAB PO SCH (06:54)
[2019-04-14] MEDS: HEPARIN SODIUM,PORCINE 5,000 UNIT/ML 1 ML VIAL SQ SCH (06:54)
[2019-04-14] MEDS: INSULIN ASPART (NovoLOG) 100 UNIT/ML VIAL SQ SCH ×2 (06:54→13:45)
[2019-04-14] MEDS: ASPIRIN 81 MG PO SCH (06:54)
--- NOTE | 2019-04-14 07:08 | XR ---
EXAMINATION TYPE: XR chest 2V DATE OF EXAM: 04/14/2019 COMPARISON: 04/13/2019 HISTORY: Postoperative evaluation. Left upper lobectomy. TECHNIQUE: Frontal and lateral views of the chest are obtained. FINDINGS: Left thoracostomy tube has been removed. Pleural thickening is seen of the left lung apex without pneumothorax. Multiple left rib fractures are redemonstrated. Left-sided volume loss from the lobectomy. Interstitial prominence is unchanged and chronic. Cardiomediastinal silhouette is within normal limits. No acute osseous pathology. IMPRESSION: Interval removal of the left thoracostomy tube. Pleural thickening is seen of the left l palmer apex with no residual pneumothorax.
[2019-04-14] MEDS: IPRATROPIUM-ALBUTEROL 3 ML NEB IH SCH ×2 (07:30→11:25)
[2019-04-14 08:17] VITALS: PULSE 93; RESP 18
--- NOTE | 2019-04-14 10:39 | P.DS ---
Providers Date of admission: 04/07/19 06:13 Expected date of discharge: 04/14/19 Attending physician: Ronny Elias Consults: 04/07/19 14:17 Consult Physician Routine Consulting Provider: Alek Whitfield Consult Reason/Comments: pulm management, known to you Do you want consulting provider notified?: Yes 04/07/19 19:16 Consult Physician Stat Consulting Provider: Estiven Mathis Consult Reason/Comments: small cell CA Do you want consulting provider notified?: Yes Primary care physician: [facility] Course: FINAL DIAGNOSIS: 1. 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 Chronic obstructive pulmonary disease 3. History of tobacco dependence with recent smoking cessation 4. Hypertension 5. Hyperlipidemia 6. Type 2 diabetes 7. Hiatal hernia 8. Family history of heart disease and cancer PRINCIPAL PROCEDURE: 1. Robotic assisted thoracoscopic left upper lobectomy with mediastinal lymph node dissection HISTORY OF PRESENT ILLNESS: This is a 68-year-old female patient who is followed by [facility] nurse practitioner on an outpatient basis. She also follows with Dr. DASIA Whitfield from pulmonary medicine. She has a past medical history significant for chronic obstructive pulmonary disease, hypertension, hyperlipidemia, type 2 diabetes mellitus, hiatal hernia, history of tobacco dependence with recent smoking cessation and family history of heart disease and cancer. She recently underwent a a low-dose CT scan of her chestin September 2018 for lung cancer screening which subsequently demonstrated a left upper lobe mass. Forfurther evaluation she underwent a head scan which was performed in December 2018 which demonstrated significant uptake in the mass to her left upper lobe with an SUV of 5.1. Subsequently, she was evaluated by Dr. Jose A Campbell from cardiothoracic surgery in December 2018 and she was referred for a needle lung biopsy. In February 2019 she underwent a lung needle biopsy at [facility] which demonstrated non-small cell carcinoma. A pulmonary function test was also completed which showed a FEV1 of 2.26, which is 75% of predicted value and a FVC of 87% of predicted value. The patient did see Dr. Ronny Elias has follow-up who discussed the findings on the PET scan, needle biopsy with the patient and an elective robotic-assisted left upper lobectomy was recommended. The patient wished to proceed with the elective left upper lobectomy. HOSPITAL COURSE: The patient was admitted to the hospital and after obtaining consent was taken to the operating room where she underwent an elective robotic- assisted thoracoscopic left upper lobectomy with mediastinal lymph node dissection. upon completion of the surgery she was transferred to the recovery unit where she was monitored hemodynamically and recovered. She was subsequently transferred to the cardiac stepdown unit for further monitoring and rehabilitation. She is still requiring oxygen at 2 L nasal cannula as her room air oxygen saturations are 85%. The patient's pathology results are back and have been discussed with the patient by Dr. Ronny Elias, the pathology results demonstrated pT2 N2 disease. Physical therapy has been working with the patient, she has been tolerating an oral diet, her pain is well controlled and she is ready to be discharged home on postoperative day #6. She has received written and verbal instructions regarding her medications, activity restrictions, signs and symptoms requiring physician notification and her follow-up appointments. COMPLICATIONS: There were no postoperative complications. CONSULTATIONS: 1. Dr. DASIA Whitfield for pulmonary management. 2. Dr. Mathis for oncology management. DISCHARGE INSTRUCTIONS: 1. No driving for 2 weeks, or until physician gives their ok. 2. The patient should sleep in their own bed, no medical bed needed. 3. Stairs are not an issue. If the bedroom is upstairs, it is advised that the patient go up at night and down in the morning for the first week. Go slowly, using handrail and take 1 step at a time. 4. ZO hose are to be worn for 30 days or until physician discontinues. 5. No lifting, pushing, or pulling more than 10 pounds for 2 weeks. The physician will advise of any restriction changes. 6. Continue pain control per as needed orders. 7. Continue with incentive spirometry and splinting/heart hugger until otherwise directed by the physician. 8. Must shower daily starting tomorrow 04/15/2019, using liquid antibacterial soap. 11. Routine sternal incision care, no ointments, lotions or powders on the incisions. 12. Please notify surgeon/nurse practitioner for temperature greater than 101F or purulent drainage from incisions 13.The patient will be discharged home with oxygen as her room air oxygen saturations are 85%. Plan - Discharge Summary Discharge Rx Participant: Yes New Discharge Prescriptions: New Metoprolol Tartrate [Lopressor] 75 mg PO BID #120 tab Acetaminophen Tab [Tylenol] 1,000 mg PO Q6HR PRN tab PRN Reason: Fever And/ Or Pain Continue Atorvastatin [Lipitor] 20 mg PO HS Aspirin [Adult Low Dose Aspirin EC] 81 mg PO DAILY Lisinopril 40 mg PO DAILY metFORMIN HCL [Glucophage] 2,000 mg PO W/SUPPER glipiZIDE [Glucotrol XL] 2.5 mg PO DAILY Omeprazole [PriLOSEC] 40 mg PO QAM amLODIPine [Norvasc] 10 mg PO DAILY Discharge Medication List Aspirin [Adult Low Dose Aspirin EC] 81 mg PO DAILY 01/24/19 [History] Atorvastatin [Lipitor] 20 mg PO HS 01/24/19 [History] Lisinopril 40 mg PO DAILY 04/04/19 [History] Omeprazole [PriLOSEC] 40 mg PO QAM 04/04/19 [History] glipiZIDE [Glucotrol XL] 2.5 mg PO DAILY 04/04/19 [History] metFORMIN HCL [Glucophage] 2,000 mg PO W/SUPPER 04/04/19 [History] amLODIPine [Norvasc] 10 mg PO DAILY 04/07/19 [History] Acetaminophen Tab [Tylenol] 1,000 mg PO Q6HR PRN tab 04/14/19 [Rx] Metoprolol Tartrate [Lopressor] 75 mg PO BID #120 tab 04/14/19 [Rx] Follow up Appointment(s)/Referral(s): Estiven Mathis MD [STAFF PHYSICIAN] - 4 Weeks Ronny Elias MD [STAFF PHYSICIAN] - 04/21/19 1:00 pm Temo Raymond NPC [Primary Care Provider] - 05/02/19 9:00 am Alek Whitfield MD [STAFF PHYSICIAN] - 04/21/19 10:45 am ([address] Activity/Diet/Wound Care/Special Instructions: Home Oxygen required at discharge due to hypoxia from dx: copd/lung adenocarcinoma DISCHARGE INSTRUCTIONS: 1. No driving for 2 weeks, or until physician gives their ok. 2. No lifting, pushing, or pulling more than 10 pounds for 2 weeks. The physician will advise of any restriction changes. 3. Continue pain control per as needed orders. Alternate acetaminophen (Tylenol) and ibuprofen (Motrin/Advil) for pain. 4. Continue with incentive spirometry and splinting until otherwise directed by the physician. 5. Leave chest tube dressing for 48 hours. After that, remove all dressings and shower daily. 6. Routine incision care. No powders, lotions, ointments on incisions. 7. Please call surgeon/NANOTECHNOLOGY TECHNICIAN for temp greater than 101 F or purulent drainage from incisions. Discharge Disposition: HOME SELF-CARE
[2019-04-14 11:37] LABS: Glucose,Whole Blood 112 mg/dL (75-99)
[2019-04-14 12:26] VITALS: BP 139/66; TEMP 98.3
--- NOTE | 2019-04-14 12:27 | PN ---
PROGRESS NOTE DATE OF SERVICE: 04/14/2019 Patient is a 68-year-old female who is seen sitting up in bed, is awake, alert. Denies any pain. Denies any shortness of breath. Feels quite well today. Plan is for patient to discharge to home. Patient is afebrile, hemodynamically stable in no acute distress. PHYSICAL EXAM: Vital signs, temp 98.8, heart rate is 76, respiratory rate is 18, blood pressure is 119/59, O2 saturation 93% on 2 L O2 via nasal cannula. HEENT: Head is normocephalic, atraumatic. NECK: Supple. Trachea is midline. LUNGS: With scattered expiratory wheeze and a few scattered rales. HEART: S1, S2 are heard. Not tachycardic. ABDOMEN: Soft. Bowel sounds are positive. EXTREMITIES: With no edema. NEUROLOGIC: Patient is awake and alert. LABS: No new labs to review. IMAGING: Chest x-ray done this a.m., interval removal of the left thoracostomy tube. Pleural thickening is seen of the left lung apex with no residual pneumothorax. IMPRESSION: 1. Lung cancer with moderate to poorly differentiated pulmonary adenocarcinoma with negative lymph nodes. 2. Mild chronic obstructive pulmonary disease. 3. Left-sided pneumothorax as part of left upper lobectomy which has resolved. PLAN: Continue incentive spirometry with pulmonary hygiene. The patient is to follow up in the Pulmonary office with Dr. Whitfield in the next 7-10 days and this was reviewed with the patient as well. Patient will discharge home on oxygen and we will follow patient in the office. MMODL / IJN: [id number] /
--- NOTE | 2019-04-14 12:49 | P.PN ---
Subjective Progress Note Date: 04/14/19 Principal diagnosis: NSCLC resected, stage IIIA In follow-up today pt doing good, chest tube removed, discomfort with cough, splinting as educated, mild shortness of breath on exertion, no expectoration, hemoptysis, fevers, tolerating a diet, anxious for discharge Objective - Vital Signs Vital signs: Vital Signs Temp 98.3 F 04/14/19 12:00 Pulse 93 04/14/19 12:00 Resp 18 04/14/19 12:00 BP 139/66 04/14/19 12:00 Pulse Ox 95 04/14/19 12:00 Intake & Output 04/13/19 04/14/19 04/14/19 18:59 06:59 18:59 Intake Total 844 240 Balance 844 240 Weight 49.5 kg 44.6 kg Intake: Oral 844 240 Other: Voiding Method Toilet Toilet Toilet # Voids 2 1 2 - Constitutional General appearance: Present: average body habitus, cooperative, no acute distress - EENT Eyes: Present: anicteric sclerae, EOMI ENT: Present: hearing grossly normal - Respiratory Respiratory: left: other (absent breath sounds lower left ), bilateral: CTA - Cardiovascular Rhythm: regular - Peripheral edema leg Peripheral Edema: bilateral: None - Gastrointestinal General gastrointestinal: Present: normal bowel sounds, soft - Integumentary Integumentary: Present: normal - Neurologic Neurologic: Present: CNII-XII intact - Musculoskeletal Musculoskeletal: Present: strength equal bilaterally - Psychiatric Psychiatric: Present: A&O x's 3, appropriate affect, intact judgment & insight - Labs CBC & Chem 7: 04/11/19 05:38 04/11/19 05:38 Labs: Abnormal Lab Results - Last 24 Hours (Table) 04/13/19 04/13/19 04/14/19 Range/Units 16:50 20:05 06:23 POC Glucose (mg/dL) 133 H 107 H 171 H (75-99) mg/dL 04/14/19 Range/Units 11:36 POC Glucose (mg/dL) 112 H (75-99) mg/dL Assessment and Plan (1) Primary lung adenocarcinoma Narrative/Plan: Per NCCN guidelines N2 disease should be treated with chemo or possibly chemo/XRT. Case discussed Onc and Rad Onc. Treatment plans will be finalized and sched accordingly. Discussed the above with pt and . they verbalize understanding the recommendations. Path report notes tissue sent for PDL-1 and NGS-we will watch for these results Current Visit: Yes Status: Acute Priority: High Code(s): C34.90 - MALIGNANT NEOPLASM OF UNSP PART OF UNSP BRONCHUS OR LUNG SNOMED Code(s): 977771244
== END 2019-04-14 12:58 | disposition home or self-care (01) | DRG 164 ==
LOC: 2ORMAIN 06:13 → 3SCARD 15:59
PROVIDERS: ADMIT Thoracic Surgery (Cardiothoracic Vascular Surgery); ATTEND Thoracic Surgery (Cardiothoracic Vascular Surgery)
PROC: 0BTG4ZZ Resection of Left Upper Lung Lobe, Percutaneous Endoscopic Approach (ICD-10-PCS; principal; 2019-04-07 08:15)
PROC: 8E0W4CZ Robotic Assisted Procedure of Trunk Region, Percutaneous Endoscopic Approach (ICD-10-PCS; principal; 2019-04-07 08:15)
PROC: 07T74ZZ Resection of Thorax Lymphatic, Percutaneous Endoscopic Approach (ICD-10-PCS; principal; 2019-04-07 08:15)
DX: C34.12 Malignant neoplasm of upper lobe, left bronchus or lung (principal); J93.82 Other air leak; J44.9 Chronic obstructive pulmonary disease, unspecified; I11.9 Hypertensive heart disease without heart failure; J98.4 Other disorders of lung; K44.9 Diaphragmatic hernia without obstruction or gangrene; E78.2 Mixed hyperlipidemia; E78.00 Pure hypercholesterolemia, unspecified; E11.9 Type 2 diabetes mellitus without complications; K57.90 Diverticulosis of intestine, part unspecified, without perforation or abscess without bleeding; E53.8 Deficiency of other specified B group vitamins; L40.9 Psoriasis, unspecified; H26.9 Unspecified cataract; Z79.82 Long term (current) use of aspirin; Z79.84 Long term (current) use of oral hypoglycemic drugs; Z79.899 Other long term (current) drug therapy; Z87.891 Personal history of nicotine dependence; Z86.19 Personal history of other infectious and parasitic diseases; Z86.010 Personal history of colon polyps; Z98.51 Tubal ligation status; Z82.49 Family history of ischemic heart disease and other diseases of the circulatory system; Z80.49 Family history of malignant neoplasm of other genital organs; Z80.8 Family history of malignant neoplasm of other organs or systems
CPT/HCPCS: 36600; 71045; 71046; 80048; 82607; 82728; 82747; 82805; 83540; 83550; 85025; 85027; 86850; 86900; 86901; 88305; 88309; 88313; 88341; 88342; 94640; 94760

== ENCOUNTER → 2020-03-27 | Outpatient (CLI) | payer MEDICARE, OTHER ==
[2020-03-27 11:05] LABS: African American GFR (CKD) >90 (>60 ml/min/1.73 sqM); Blood Urea Nitrogen 16 mg/dL (7-17); Non-African American GFR(CKD) 80 (>60 ml/min/1.73 sqM)
--- NOTE | 2020-03-27 12:12 | CT ---
EXAMINATION TYPE: CT chest w con DATE OF EXAM: 03/27/2020 COMPARISON: Chest x-ray April 14, 2019. Prior PET/CT January 11, 2019 HISTORY: Lung cancer left side history of prior surgery and chemotherapy ended April 2019 CT DLP: 114.50 mGycm. Automated Exposure Control for Dose Reduction was Utilized. TECHNIQUE: CT scan of the thorax is performed following with IV Contrast, patient injected with 100 ml mL of Isovue 300. FINDINGS: LUNGS: Background moderate underlying emphysematous change. Left-sided partial pneumonectomy changes with left-sided volume loss now identified. There is focal mild to moderate scarring in the left lung base with juxtaphrenic diaphragmatic peaking. Just cranial to the stairs some faint opacity includin g 6 x 3 mm groundglass nodule image 36. No new suspicious greater than 4 mm solid nodules or masses i dentified bilaterally. Tiny left pleural fluid collection and/or thickening inferiorly. No pneumothor ax seen bilaterally. MEDIASTINUM: There are no new greater than 1 cm hilar or mediastinal lymph nodes. No cardiomegaly or pericardial effusion is seen. Moderate to severe three-vessel coronary artery calcification and/or stents redemonstrated. OTHER: No new adrenal masses. Exaggerated thoracic kyphosis with mild multilevel anterior spurring. IMPRESSION: Moderate emphysematous changes bilaterally. Left lung posttreatment changes. No definitiv e new suspicious nodule or adenopathy.
== END | disposition home or self-care (01) ==
LOC: RADCTMAIN 10:02
PROVIDERS: ATTEND Internal Medicine Hematology & Oncology
DX: J43.9 Emphysema, unspecified (principal); C34.12 Malignant neoplasm of upper lobe, left bronchus or lung; Z98.890 Other specified postprocedural states
CPT/HCPCS: 82565; 84520; 71260; 36415; Q9967

== ENCOUNTER → 2020-09-25 | Outpatient (CLI) | payer MEDICARE, OTHER ==
--- NOTE | 2020-09-25 10:03 | CT ---
EXAMINATION TYPE: CT chest wo con DATE OF EXAM: 09/25/2020 COMPARISON: 03/27/2020 HISTORY: Lung CA CT DLP: 149.8 mGycm. Automated Exposure Control for Dose Reduction was Utilized. TECHNIQUE: CT scan of the thorax is performed without IV contrast. FINDINGS: LUNGS: Background moderate underlying emphysematous change. Left-sided partial pneumonectomy changes with left-sided volume loss now identified. There is a stable appearing 6 mm nodule in the right uppe r lobe laterally image 14. Multiple subpleural nodule stable. Previously noted groundglass nodule wit hin the left lung is stable. Groundglass of minimal faint changes are seen bilaterally. Additional va latrell nodule anteriorly within the left lung measuring 4 mm too small to characterize but likely postin flammatory subpleural nodule superior segment right lower lobe measuring 5 mm appears. Additional new 1 cm nodule axial image 34. MEDIASTINUM: Lack of IV contrast is noted to limit evaluation for mediastinal and especially hilar ad enopathy. There are no definitive greater than 1 cm hilar or mediastinal lymph nodes. Heart size is p rominent there is coronary artery calcification. Atherosclerotic change aorta. OTHER: Hypertrophic and degenerative changes of the spine.. IMPRESSION: 1. COPD with postsurgical changes. Previously noted groundglass nodule in the left lung is stable bandar suring approximately 6 mm could be postinflammatory. See above. 2. There is a new 4 mm subpleural nodule superior segment right lower lobe axial image 28 and new add itional right lower lobe nodule measuring 1 cm axial image 34. Underlying metastases not excluded.
== END | disposition home or self-care (01) ==
LOC: RADCTMAIN 08:11
PROVIDERS: ATTEND Internal Medicine Hematology & Oncology
DX: J44.9 Chronic obstructive pulmonary disease, unspecified (principal); R91.8 Other nonspecific abnormal finding of lung field; Z85.118 Personal history of other malignant neoplasm of bronchus and lung
CPT/HCPCS: 36415; 71250; 82565; 84520

== ENCOUNTER → 2020-12-25 | Outpatient (CLI) | payer MEDICARE, OTHER ==
--- NOTE | 2020-12-25 11:12 | CT ---
EXAMINATION TYPE: CT chest wo con DATE OF EXAM: 12/25/2020 COMPARISON: 09/25/2020 HISTORY: Lung Cancer. new right lung nodule CT DLP: 132.[address] of the chest was performed with lung and mediastinal window settings submitted. The la ck of contrast limits evaluation of the vascular, mediastinal and parenchymal structures including th e upper abdomen. LUNGS: Partial left-sided pneumonectomy changes redemonstrated. Background of moderate underlying emp hysematous change. 5 mm nodule right upper lobe image 16 versus 6 mm previously. 7.8 mm groundglass n odule left perihilar region image 25 versus 7 mm previously. Previously noted new 1 cm right lower lo be pulmonary nodule is not reproduced at this time. No new nodules seen. Mild scattered postinflammat ory change throughout both lung murphy. No new masses seen. No focal consolidation or pleural effusio n. MEDIASTINUM/NICOLE: Thoracic aorta is of normal caliber with limited evaluation given lack of contrast . The heart is not enlarged. No evidence for mediastinal mass. No lymph nodes greater than 1cm. UPPER ABDOMEN: No significant abnormality is seen. OTHER: No significant other abnormality. IMPRESSION: 1. Stable postoperative changes in scattered nodularity. No new nodules identified.
== END | disposition home or self-care (01) ==
LOC: RADCTMAIN 09:35
PROVIDERS: ATTEND Internal Medicine Hematology & Oncology
DX: R91.8 Other nonspecific abnormal finding of lung field (principal); Z85.118 Personal history of other malignant neoplasm of bronchus and lung
CPT/HCPCS: 71250

== ENCOUNTER → 2021-10-03 | Outpatient (CLI) | payer MEDICARE, OTHER ==
--- NOTE | 2021-10-04 02:28 | MR ---
EXAMINATION TYPE: MR shoulder RT wo con DATE OF EXAM: 10/03/2021 COMPARISON: None HISTORY: Rt shoulder pain-unable to lift arm over her head x2 months Multiplanar multiecho imaging of the right shoulder with no contrast. The subscapularis tendon is intact. Biceps tendon is intact. Glenoid miguel appear normal. There are s mall shoulder joint effusion. There are small areas of full-thickness tear of the supraspinatus tendo n over the top of the humeral head. The AC joint is intact. No subacromial impingement. The infraspin atus muscle is intact. There are small effusion of the AC joint. No evidence of a fracture. No focal bone destruction. IMPRESSION: Small areas of full-thickness tear of the supraspinatus tendon. Small joint effusion consistent with mild synovitis. No fracture.
== END | disposition home or self-care (01) ==
LOC: RADMRIMAIN 15:50
PROVIDERS: ATTEND Internal Medicine Hematology & Oncology
DX: M75.111 Incomplete rotator cuff tear or rupture of right shoulder, not specified as traumatic (principal)

== ENCOUNTER → 2023-03-10 | Outpatient (CLI) | payer MEDICARE, OTHER ==
[2023-03-10 12:26] LABS: African American GFR (CKD) 63 (>60 ml/min/1.73 sqM); Blood Urea Nitrogen 14 mg/dL (7-17); Non-African American GFR(CKD) 54 (>60 ml/min/1.73 sqM)
--- NOTE | 2023-03-10 13:11 | CT ---
EXAMINATION TYPE: CT chest w con DATE OF EXAM: 03/10/2023 COMPARISON: 12/16/2021 HISTORY: Lung CA follow up CT DLP: 184.6 mGycm Automated exposure control for dose reduction was used. CONTRAST: CT scan of the chest is performed with IV Contrast, patient injected with 80 mL of Isovue 300. FINDINGS: LUNGS: Again noted postoperative changes of the partial left-sided pneumonectomy. There is mild-to-mo derate centrilobular emphysema. Stable 5 mm pulmonary nodule right upper lobe near the fissure image 22. Increasing left perihilar groundglass nodule now measuring 1.9 x 1.7 cm versus 1.8 x 1.1 cm previ ously. Consider PET/CT correlation. New 6.5 mm nodular density right lower lobe image 29. Previously noted right lower lobe 5 mm pulmonary nodule is not redemonstrated at this time. MEDIASTINUM: There are no greater than 1 cm hilar or mediastinal lymph nodes. No pericardial effusi on is seen. Thoracic aorta is of normal caliber. Cardiomegaly noted. UPPER ABDOMEN: No significant abnormality appreciated. OTHER: No additional significant abnormality is seen. IMPRESSION: 1.Increasing left perihilar groundglass nodule now measuring 1.9 x 1.7 cm versus 1.8 x 1.1 cm previou sly. Consider PET/CT correlation. 2 new 6.5 mm subpleural nodule right lower lobe. 3. Postoperative changes of partial left-sided pneumonectomy.
== END | disposition home or self-care (01) ==
LOC: RADCTMAIN 11:52
PROVIDERS: ATTEND Internal Medicine Hematology & Oncology
DX: C34.12 Malignant neoplasm of upper lobe, left bronchus or lung (principal); R91.1 Solitary pulmonary nodule; Z98.890 Other specified postprocedural states
CPT/HCPCS: 82565; 84520; 71260; 36415; Q9967

== ENCOUNTER → 2023-10-07 | Outpatient (CLI) | payer MEDICARE, OTHER ==
[2023-10-07 12:51] LABS: African American GFR (CKD) 60 (>60 ml/min/1.73 sqM); Blood Urea Nitrogen 17 mg/dL (7-17); Non-African American GFR(CKD) 52 (>60 ml/min/1.73 sqM)
--- NOTE | 2023-10-07 13:49 | CT ---
EXAMINATION TYPE: CT chest w con DATE OF EXAM: 10/07/2023 COMPARISON: Chest CT March 10, 2023 and older studies HISTORY: f/u lung ca CT DLP: 398 mGycm. Automated Exposure Control for Dose Reduction was Utilized. TECHNIQUE: CT scan of the thorax is performed following with IV Contrast, patient injected with 80 m L of Isovue 300. FINDINGS: LUNGS: Background moderate to advanced underlying emphysematous change is redemonstrated. Left-sided partial pneumonectomy changes with left-sided volume loss are redemonstrated. There is focal mild to moderate scarring in the left lung base axial image 40 redemonstrated. Superior to this there is fair ly stable nearer 2.0 cm left perihilar scarlike opacity axial image 25. There are however some new sm aller nodules or nodular consolidation throughout the left lung including 8 mm left upper lung ground glass nodule axial image 19. Stable 5 mm right mid lung nodule axial image 22. There is new 6 mm nodule or nodular consolidation j ust adjacent to this. No pleural effusion or pneumothorax seen bilaterally. MEDIASTINUM: There are no definitive new greater than 1 cm hilar or mediastinal lymph nodes. No ca rdiomegaly or pericardial effusion is seen. Severe three-vessel coronary artery calcification and/or stents are redemonstrated. OTHER: No new adrenal masses. Exaggerated thoracic kyphosis is redemonstrated. IMPRESSION: Moderate to severe emphysematous changes bilaterally redemonstrated. Left lung posttreatm ent changes redemonstrated. There is more suspicion for active neoplastic recurrence with new suspici ous areas of nodularity predominantly in the left lung noted. Follow-up PET/CT may be beneficial.
== END | disposition home or self-care (01) ==
LOC: RADCTMAIN 12:05
PROVIDERS: ATTEND Internal Medicine Hematology & Oncology
DX: C34.12 Malignant neoplasm of upper lobe, left bronchus or lung (principal); E11.9 Type 2 diabetes mellitus without complications; J44.9 Chronic obstructive pulmonary disease, unspecified; E78.5 Hyperlipidemia, unspecified; I10 Essential (primary) hypertension; J43.9 Emphysema, unspecified
CPT/HCPCS: 82565; 84520; 71260; 36415; Q9967

== ENCOUNTER → 2023-11-12 | Outpatient (CLI) | payer MEDICARE, OTHER ==
--- NOTE | 2023-11-16 18:01 | PE ---
EXAMINATION TYPE: PET CT fusion skull to thigh DATE OF EXAM: 11/12/2023 COMPARISON: CT chest 10/07/2023 Prior PET/CT: 04/08/2023 HISTORY: Lung neoplasm TECHNIQUE: Following the intravenous administration of 10.41 mCi of F-18 FDG, whole body images are performed from the skull base to the midthigh. Images are reviewed on the computer in the coronal, a xial, and sagittal planes. Reconstructed rotating images are created on independent workstation and reviewed on the computer. A localization and attenuation correction CT is performed in conjunction with the PET scan. DLP: 202.33 mGycm SCAN: Subsequent Blood glucose: 112 mg/dL Average Mediastinum SUV: 2.21 Average Liver SUV: 2.67 FINDINGS: NECK: No abnormal uptake THORAX: There is a very subtle nodule with uptake measuring 1.93 in the lateral left upper lung field . Image 75, SUV 1.93. This has intermediate signal in good related to inflammatory change. Neoplasm i s not excluded. There may be a 3.18 SUV lymph node in the right hilar region, image 79. Subtle uptake is within the left infrahilar region, image 86, SUV 2.67. ABDOMEN: Couple of areas of uptake anterior to the liver. A be related to bowel activity. Increased u ptake is throughout the loops of bowel which can be related to peristalsis activity. PELVIS: There may be some more focal uptake within the rectum left of midline, image 210, SUV 8.09. C onsider direct visualization OSSEOUS STRUCTURES: No abnormal uptake LOCALIZATION CT: Small nodule correlates with the area of uptake on PET scan COMPARISON: Uptake within the faint nodule left upper lobe appears to be new. Perihilar uptake may woods ve been present previously. Suspected recurrent right hilar uptake may be new. IMPRESSION: 1. No uptake within a density at the left upper lung field as well as potential right hilar uptake. N o metastatic lesions may be present. 2. Stable appearing uptake within increased lung markings left perihilar region. 3. There is some intense uptake within the rectum. Consider direct visualization.
== END | disposition home or self-care (01) ==
LOC: RADPETMAIN 11:49
PROVIDERS: ATTEND Internal Medicine Hematology & Oncology
DX: C34.12 Malignant neoplasm of upper lobe, left bronchus or lung (principal); E11.9 Type 2 diabetes mellitus without complications; J44.9 Chronic obstructive pulmonary disease, unspecified; E78.5 Hyperlipidemia, unspecified
CPT/HCPCS: 78815; A9552

== ENCOUNTER → 2024-05-27 | Outpatient (CLI) | payer MEDICARE, OTHER ==
[2024-05-27 12:05] LABS: African American GFR (CKD) 68 (>60 ml/min/1.73 sqM); Blood Urea Nitrogen 15 mg/dL (7-17); Non-African American GFR(CKD) 59 (>60 ml/min/1.73 sqM)
--- NOTE | 2024-05-27 16:18 | CT ---
EXAMINATION TYPE: CT chest w con DATE OF EXAM: 05/27/2024 COMPARISON: 10/07/2023, 03/10/2023 HISTORY: 73-year-old female C34.12, follow-up f/u lung ca TECHNIQUE: Contiguous axial scanning of the chest after the administration of 80cc mL of Isovue 300. Coronal/sagittal reconstructions performed. CT DLP: 200.3mGycm. Automatic exposure control utilized for a dose reduction. FINDINGS: Heart is borderline enlarged without pericardial effusion. Extensive three-vessel coronary artery leonel cifications are present. Mild to moderate atherosclerotic arch calcifications with conventional arterial vessel branching armaan lisette and possible moderate atherosclerotic narrowing proximal left subclavian artery. Borderline caliber main right and left pulmonary arteries up to 2.5 cm may reflect underlying pulmona ry arterial hypertension. No thoracic lymphadenopathy by CT size criteria. Development of trace bilateral pleural effusions. Moderate upper lung predominant emphysematous enriquez e redemonstrated. Redemonstrated focal irregular opacity left perihilar region measuring 2.6 cm likely relating to site of treated disease. Multifocal patchy and nodular densities are redemonstrated. Some of these areas are new and some are slightly larger now, for example, 1.2 cm left upper lobe versus 9 mm, previously. 7 mm anterior right midlung versus 5 mm, previously. Areas suggestive of the left base on axial image 30 and 27 are new. Patchy peripheral opacity right u pper lobe, axial image 17 is new. Visualized upper abdomen shows no gross abnormality. Bones: Accentuated midthoracic kyphosis. IMPRESSION: 1. COPD with moderate emphysema. Stable site of treated disease at the left perihilar region. 2. Redemonstrated multiple scattered groundglass and nodular areas. Some of these areas show slight i nterval enlargement (for example left upper lobe measuring 1.2 cm versus 9 mm, previously) while othe rs are new, for example in the left lower lobe axial image 30 and anterior right upper lobe, axial im age 18. Given the persistence of previous densities and some new and enlarging areas, we are unable t o exclude some gradual progression. If low clinical suspicion for progression and an infectious/infla mmatory etiology is favored, ongoing surveillance follow-up is advised. 3. Interval development of trace bilateral pleural effusions. [facility], , 05/27/2024 4:15 PM
== END | disposition home or self-care (01) ==
LOC: RADCTMAIN 11:06
PROVIDERS: ATTEND Internal Medicine Hematology & Oncology
DX: C34.12 Malignant neoplasm of upper lobe, left bronchus or lung (principal); J44.9 Chronic obstructive pulmonary disease, unspecified; E11.9 Type 2 diabetes mellitus without complications; E78.5 Hyperlipidemia, unspecified; I10 Essential (primary) hypertension; J90 Pleural effusion, not elsewhere classified; J43.9 Emphysema, unspecified
CPT/HCPCS: 82565; 84520; 71260; 36415; Q9967

== ENCOUNTER → 2024-11-11 | Outpatient (CLI) | payer MEDICARE, OTHER ==
--- NOTE | 2024-11-14 09:34 | CT ---
EXAMINATION TYPE: CT chest wo con DATE OF EXAM: 11/11/2024 12:21 PM COMPARISON: 05/27/2024 CLINICAL INDICATION: Female, 74 years old with history of C34.12 MALIGNANT NEOPLASM OF UPPER LOBE, LE FT BRON; PHH, Hx lung ca TECHNIQUE: CT of the chest without IV contrast. Coronal and sagittal reconstructions performed. CT DLP: 164.40 mGycm, Automated exposure control for dose reduction was used. FINDINGS: The heart is borderline enlarged without pericardial effusion. Extensive three-vessel coronary artery calcifications are present and are remarkable for coronary artery disease. Mild to moderate atherosclerotic arch calcifications with conventional arch vessel branching anatomy. Mild atherosclerotic calcifications descending thoracic aorta. Borderline caliber main right and left pulmonary arteries up to 2.5 cm may reflect underlying pulmona ry arterial hypertension. Scattered few nonenlarged mediastinal lymph nodes are demonstrated. No thoracic adenopathy by CT size criteria. There is advanced emphysematous change redemonstrated. Multifocal patchy groundglass opacities throughout the left mid and lower lung are redemonstrated. Mo st of these areas are stable with a few areas increased by a few millimeters, for example, lateral le ft upper lobe currently measuring 1.5 cm axial image 17 and lingula measuring 9 mm versus 5 mm, previ ously. Postsurgical changes left upper lobectomy. Patchy groundglass changes in the right persist but are either stable or smaller. No pleural effusion. Tiny hiatal hernia. Visualized upper abdomen otherwise shows moderate atherosclerotic calcifications infrarenal abdominal aorta. Bones: Mild degenerative disc disease thoracic spine. No osseous destructive process. IMPRESSION: 1. COPD with advanced emphysema; status post left upper lobectomy. 2. Groundglass foci throughout the left mid and lower lung are largely stable but with a couple areas larger by a few millimeters. Largest measures 1.5 cm in the lateral left upper lobe. The greatest ch celso is located in the lingula currently 9 mm versus 5 mm, previously. Ongoing follow-up to exclude e fracisco disease progression. 3. A few groundglass foci on the right also persist but are either stable or smaller. 4. Extensive three-vessel coronary artery calcifications. [facility], Workstation: [id number], 11/14/2024 9:31 AM
== END | disposition home or self-care (01) ==
LOC: RADCTMAIN 11:42
PROVIDERS: ATTEND Internal Medicine Hematology & Oncology
DX: C34.12 Malignant neoplasm of upper lobe, left bronchus or lung (principal); E11.9 Type 2 diabetes mellitus without complications; E78.5 Hyperlipidemia, unspecified; I10 Essential (primary) hypertension; I25.10 Atherosclerotic heart disease of native coronary artery without angina pectoris; J43.9 Emphysema, unspecified; Z90.2 Acquired absence of lung [part of]
CPT/HCPCS: 71250